=== PATIENT | female | born 1975 | race Caucasian/White ===

== ENCOUNTER 2017-02-24 06:58 | Emergency (ER) | payer MEDICAID ==
[~2017-02-24] VITALS: Ht 162.6 cm; Wt 73.9 kg
--- NOTE | 2017-02-24 07:05 | NUR ---
Called for triage, can hear pt vomiting in restroom. Will bring back matthew.
[2017-02-24 07:18] VITALS: BP_SYST 152
--- NOTE | 2017-02-24 07:18 | NUR ---
Pt to bed 5, placed in gown for evaluation
--- NOTE | 2017-02-24 07:19 | NUR ---
Patient alert and oriented x4, stable condition, has had mid abdominal pain for three years but vomited 5x this am. States drank "a few beers" last night. Denies drinking alcohol daily. Denies diarrhea. States is nauseated now. Abdomen soft and non distended. No other complaints/injuries per patient or noted.
--- NOTE | 2017-02-24 07:20 | NUR ---
Dr. Dash at bedside for evaluation
[2017-02-24] MEDS ORDERED: NACL 0.9% 1,000 ML IV ONE (07:22)
[2017-02-24] MEDS ORDERED: ONDANSETRON HCL 4 MG/2 ML VIAL IVP ONE (07:30)
[2017-02-24] MEDS ORDERED: DIPHENHYDRAMINE INJ 50 MG/ML VIAL IVP ONE (07:30)
[2017-02-24] MEDS ORDERED: MORPHINE 2 MG/ML INJ. SYRINGE IVP ONE (07:30)
[2017-02-24] MEDS ORDERED: PANTOPRAZOLE SODIUM 40 MG/VIAL (PROTONIX) IVP ONE (07:30)
[2017-02-24 07:41] LABS: BASOPHILS # (AUTO) 0.2 K/uL (0.0-0.2); BASOPHILS % (AUTO) 2.3 % (0.0-2.0); EOSINOPHILS # (AUTO) 0.1 K/uL (0.0-0.4); EOSINOPHILS % (AUTO) 0.9 % (0.0-4.0); HEMATOCRIT 40.8 % (36-48); HEMOGLOBIN 13.8 g/dL (12.0-16.0); LYMPHOCYTES # (AUTO) 1.7 K/uL (1.0-5.5); LYMPHOCYTES % (AUTO) 22.1 % (20.5-51.5); MEAN CORPUSCULAR HEMOGLOBIN 30 pg (27-31); MEAN CORPUSCULAR HGB CONC 34 % (32-36); MEAN CORPUSCULAR VOLUME 87 fL (79.0-98.0); MONOCYTES # (AUTO) 0.4 K/uL (0.0-1.0); MONOCYTES % (AUTO) 5.4 % (1.7-9.3); NEUTROPHILS # (AUTO) 5.1 K/uL (1.8-7.7); NEUTROPHILS % (AUTO) 69.3 % (40.0-70.0); PLATELET COUNT (AUTO) 279 K/uL (130-430); RED BLOOD CELL COUNT(AUTO) 4.67 MIL/uL (4.2-6.2); RED CELL DISTRIBUTION WIDTH 12.5 % (9.0-15.0); WHITE BLOOD COUNT (AUTO) 7.5 K/uL (4.8-10.8)
[2017-02-24 07:52] LABS: CALCIUM 8.8 mg/dL (8.4-11.0); CREATININE 0.76 mg/dL (0.55-1.30); POTASSIUM 3.2 mmol/L (3.5-5.1)
[2017-02-24 07:57] LABS: TOTAL BILIRUBIN 1.4 mg/dL (0.0-1.0); TOTAL PROTEIN, SERUM 7.2 g/dL (6.4-8.3)
[2017-02-24 08:25] LABS: BILIRUBIN,URINE NEGATIVE (NEGATIVE); BLOOD, URINE 2+ (NEGATIVE); CLARITY/URINE CLEAR (CLEAR); COLOR,URINE YELLOW (YELLOW); GLUCOSE,URINE NEGATIVE (NEGATIVE); KETONES,URINE 2+ (NEGATIVE); LEUKOCYTE ESTERASE ,URINE NEGATIVE (NEGATIVE); NITRITE, URINE NEGATIVE (NEGATIVE); PH,URINE 6.5 (5.0-8.0); PROTEIN URINE TRACE (NEGATIVE)
[2017-02-24 08:41] LABS: BACTERIA,URINE RARE /HPF (None Seen); MUCUS,URINE 1+ /LPF (None Seen); WBC,URINE 0-3 /HPF (0-3)
[2017-02-24] MEDS ORDERED: MAG HYDROX/AL HYDROX/SIMETH 30 ML, BELLADONNA ALKALOIDS/PHENOBARB 10 ML, LIDOCAINE VISC... PO ONE ×3 (08:45)
--- NOTE | 2017-02-24 09:17 | NUR ---
Patient sleeping in bed, stable condition.
--- NOTE | 2017-02-24 11:00 | NUR ---
Patient sleeping in bed, arousable to voice. Stable condition.
--- NOTE | 2017-02-24 11:05 | NUR ---
PT.'S RELATIVE BELKIS WAS REACHED AT [phone], BELKIS AGREED TO DOG LICENSER THE PT. ETA 1115, PT. TO BE DISCHARGED WITH BELKIS HER DESIGNATED INSURANCE ACCOUNT MANAGER
[2017-02-24 11:15] VITALS: BP_SYST 154
--- NOTE | 2017-02-24 11:15 | NUR ---
Patient given written and verbal discharge instructions and verbalizes understanding. ER MD DR. DOBBS discussed with patient the results and treatment provided. Patient in stable condition. ID arm band removed. IV catheter removed intact and dressing applied, no active bleeding. NO Rx given. Patient educated on pain management and to follow up with PMD. Pain Scale 0/10 Opportunity for questions provided and answered.
== END 2017-02-24 11:15 | disposition home or self-care (01) ==
LOC: SED 06:58
DX: K29.20 Alcoholic gastritis without bleeding (principal)
CPT/HCPCS: 36415; 80053; 81000; 81025; 83690; 85025; 96361; 96374; 96375; 99284; C9113; J1200; J2001; J2270; J2405; J7030; 99283

== ENCOUNTER 2017-11-01 10:56 | Emergency (ER) | payer MEDICAID ==
[~2017-11-01] VITALS: Ht 162.6 cm; Wt 73.9 kg
[2017-11-01 11:13] VITALS: BP_SYST 136
--- NOTE | 2017-11-01 11:17 | NUR ---
Patient triaged and placed in waiting room. VSS and patient appears in no acute distress at this time. Accompanied by self, was dropped off by a friend, awaiting available bed, and MD notified of need for MSE.
[2017-11-01 12:36] LABS: BASOPHILS % (AUTO) 0.6 % (0.0-2.0); EOSINOPHILS # (AUTO) 0.1 K/uL (0.0-0.4); EOSINOPHILS % (AUTO) 1.1 % (0.0-4.0); HEMATOCRIT 43.9 % (36-48); HEMOGLOBIN 14.4 g/dL (12.0-16.0); LYMPHOCYTES # (AUTO) 1.4 K/uL (1.0-5.5); LYMPHOCYTES % (AUTO) 23.5 % (20.5-51.5); MEAN CORPUSCULAR HEMOGLOBIN 29 pg (27-31); MEAN CORPUSCULAR HGB CONC 33 % (32-36); MEAN CORPUSCULAR VOLUME 88 fL (79.0-98.0); MONOCYTES # (AUTO) 0.3 K/uL (0.0-1.0); MONOCYTES % (AUTO) 5.4 % (1.7-9.3); NEUTROPHILS # (AUTO) 4.4 K/uL (1.8-7.7); NEUTROPHILS % (AUTO) 69.4 % (40.0-70.0); PLATELET COUNT (AUTO) 313 K/uL (130-430); RED BLOOD CELL COUNT(AUTO) 4.98 MIL/uL (4.2-6.2); RED CELL DISTRIBUTION WIDTH 12.8 % (9.0-15.0); WHITE BLOOD COUNT (AUTO) 6.2 K/uL (4.8-10.8)
[2017-11-01 12:55] LABS: ANION GAP 9 (5-15); CALCIUM 8.9 mg/dL (8.4-11.0); CHLORIDE 102 mmol/L (98-107); CREATININE 0.67 mg/dL (0.55-1.30); GLUCOSE 97 mg/dL (70-99); POTASSIUM 3.8 mmol/L (3.5-5.1); SODIUM SERUM 139 mmol/L (136-145); UREA NITROGEN, BLOOD 10 mg/dL (8-21)
[2017-11-01 12:59] LABS: ALANINE AMINOTRANSFERASE 25 U/L (12-78); ALBUMIN 3.7 g/dL (3.4-4.8); ASPARTATE AMINOTRANSFERASE 14 U/L (10-37); LIPASE 143 U/L (73-393); TOTAL BILIRUBIN 1.6 mg/dL (0.0-1.0)
[2017-11-01 13:05] LABS: ALCOHOL, BLOOD < 3 mg/dL (<10); GFR AFRICAN AMERICAN 123 mL/min (>90)
[2017-11-01 13:18] LABS: ACETAMINOPHEN < 1 ug/mL (1-30)
[2017-11-01 14:21] LABS: BILIRUBIN,URINE NEGATIVE (NEGATIVE); BLOOD, URINE 2+ (NEGATIVE); CLARITY/URINE CLEAR (CLEAR); COLOR,URINE YELLOW (YELLOW); GLUCOSE,URINE NEGATIVE (NEGATIVE); KETONES,URINE 3+ (NEGATIVE); LEUKOCYTE ESTERASE ,URINE NEGATIVE (NEGATIVE); NITRITE, URINE POSITIVE (NEGATIVE); PROTEIN URINE NEGATIVE (NEGATIVE)
[2017-11-01 14:34] LABS: BACTERIA,URINE FEW /HPF (None Seen); MUCUS,URINE 1+ /LPF (None Seen); WBC,URINE 0-3 /HPF (0-3)
[2017-11-01 14:36] LABS: BARBITURATE, URINE NEGATIVE (NEG <=200); BENZODIAZEPINE, URINE NEGATIVE (NEG <=150); CANNABINOID, URINE NEGATIVE (NEG <=50); COCAINE, URINE NEGATIVE (NEG <=150); METHAMPHETAMINES SCREEN,URINE NEGATIVE (NEG <=500); OPIATE, URINE NEGATIVE (NEG <=100); PHENCYCLIDINE SCREEN,URINE NEGATIVE (NEG <=25); UR TRICYCLIC ANTIDEPRESSANTS NEGATIVE (NEG <=300); URINE AMPHETAMINE POSITIVE (NEG <=500); URINE METHADONE NEGATIVE (NEG <=200); URINE OXYCODONE SCREEN NEGATIVE (NEG <=100); URINE PROPOXYPHENE SCREEN NEGATIVE (NEG <=300)
--- NOTE | 2017-11-01 14:55 | NUR ---
Patient placed in room 4, endorsed care to jh DE LA ROSA.
--- NOTE | 2017-11-01 15:20 | NUR ---
Patient to ER via triage with c/o upper abdominal pain, with nausea & vomiting x "a few months" Patient reports that she has kidney stones and has run out of her medication(Ibuprofen and another unknown medication) Patient reports that she had a doctors appointment yesterday and today, but that she missed them, due to not feeling well. Patient provided urine sample while patient was in triage, urine specimen was sent to lab. Patient laying on left side with knees flexed in position of comfort, awaiting evaluation by ER MD-will continue to observe and assess.
--- NOTE | 2017-11-01 15:30 | NUR ---
ER Dr. GARZA at bedside examining patient.
[2017-11-01] MEDS ORDERED: KETOROLAC TROMETHAMINE 30 MG VIAL IM ONE (15:45)
[2017-11-01] MEDS ORDERED: ONDANSETRON 4 MG ODT TAB PO ONE (15:45)
--- NOTE | 2017-11-01 15:53 | NUR ---
PT C/O SHARP 9/10 PAIN TO ABDOMEN. PT LAYING ON L SIDE IN POSITION GUARDING ABDOMEN. TORADOL IM ADMINISTERED. PT JERROD WELL. WILL CONTINUE TO MONITOR.
--- NOTE | 2017-11-01 16:49 | NUR ---
US at bedside
--- NOTE | 2017-11-01 17:50 | NUR ---
PT LAYING COMFORTABLY IN BED ON L SIDE WITH NO SIGNS OF DISTRESS.
--- NOTE | 2017-11-01 18:06 | NUR ---
PT GIVEN JELLO PER PT REQUEST. PT LAYING COMFORTABLY IN BED WITH LIGHTS OFF AND NO SIGNS OF DISTRESS.
[2017-11-01 18:40] VITALS: BP_SYST 109
--- NOTE | 2017-11-01 18:40 | NUR ---
Patient given written and verbal discharge instructions and verbalizes understanding. ER MD discussed with patient the results and treatment provided. Patient in stable condition. ID arm band removed. Rx of motrin, norco given. Patient educated on pain management and to follow up with PMD. Has appt with PMD on monday. Pain Scale 2/10. Opportunity for questions provided and answered.
== END 2017-11-01 18:40 | disposition home or self-care (01) ==
LOC: SED 10:56
DX: N23 Unspecified renal colic (principal); Z87.442 Personal history of urinary calculi; F17.210 Nicotine dependence, cigarettes, uncomplicated
CPT/HCPCS: 36415; 76700; 80053; 80307; 81000; 81025; 83690; 85025; 96372; 99285; G0480; G0481; G0482; J1885; Q0162

== ENCOUNTER 2017-11-03 07:43 | Emergency (ER) | payer MEDICAID ==
[~2017-11-03] VITALS: Ht 165.1 cm; Wt 73.9 kg
[2017-11-03 07:50] VITALS: BP_SYST 152
[2017-11-03] MEDS ORDERED: PIPERACILLIN/TAZO 3.38 GM in NS 50 ML IV ONE (08:30)
[2017-11-03] MEDS ORDERED: MORPHINE 4 MG/ML INJ. SYRINGE IVP ONE (08:30)
[2017-11-03] MEDS ORDERED: DIPHENHYDRAMINE INJ 50 MG/ML VIAL IVP ONE (08:30)
[2017-11-03] MEDS ORDERED: PIPERACILLIN/TAZOBACTAM 3.375 GM/VIAL (ZOSYN) IV ONE (08:33)
[2017-11-03 08:49] LABS: CALCIUM 8.8 mg/dL (8.4-11.0); CREATININE 0.65 mg/dL (0.55-1.30); POTASSIUM 3.5 mmol/L (3.5-5.1)
[2017-11-03 08:51] LABS: PROTHROMBIN TIME 9.9 SECS (9.5-12.5)
[2017-11-03 08:53] LABS: ALBUMIN 3.6 g/dL (3.4-4.8); TOTAL BILIRUBIN 1.2 mg/dL (0.0-1.0)
[2017-11-03 08:59] LABS: BASOPHILS % (AUTO) 0.4 % (0.0-2.0); EOSINOPHILS # (AUTO) 0.1 K/uL (0.0-0.4); EOSINOPHILS % (AUTO) 1.9 % (0.0-4.0); HEMOGLOBIN 14.8 g/dL (12.0-16.0); LYMPHOCYTES # (AUTO) 2.1 K/uL (1.0-5.5); LYMPHOCYTES % (AUTO) 31.6 % (20.5-51.5); MEAN CORPUSCULAR HEMOGLOBIN 29 pg (27-31); MEAN CORPUSCULAR HGB CONC 33 % (32-36); MEAN CORPUSCULAR VOLUME 89 fL (79.0-98.0); MONOCYTES # (AUTO) 0.5 K/uL (0.0-1.0); MONOCYTES % (AUTO) 6.8 % (1.7-9.3); NEUTROPHILS % (AUTO) 59.3 % (40.0-70.0); PLATELET COUNT (AUTO) 320 K/uL (130-430); RED BLOOD CELL COUNT(AUTO) 5.05 MIL/uL (4.2-6.2); RED CELL DISTRIBUTION WIDTH 13.1 % (9.0-15.0); WHITE BLOOD COUNT (AUTO) 6.7 K/uL (4.8-10.8)
[2017-11-03 09:45] LABS: BILIRUBIN,URINE NEGATIVE (NEGATIVE); BLOOD, URINE 1+ (NEGATIVE); CLARITY/URINE CLEAR (CLEAR); GLUCOSE,URINE NEGATIVE (NEGATIVE); KETONES,URINE 2+ (NEGATIVE); LEUKOCYTE ESTERASE ,URINE NEGATIVE (NEGATIVE); NITRITE, URINE NEGATIVE (NEGATIVE); PH,URINE 5.5 (5.0-8.0); PROTEIN URINE NEGATIVE (NEGATIVE)
[2017-11-03 09:47] LABS: COLOR,URINE YELLOW (YELLOW)
[2017-11-03 09:54] LABS: BACTERIA,URINE RARE /HPF (None Seen); MUCUS,URINE 1+ /LPF (None Seen); RBC,URINE 0-3 /HPF (0-3); WBC,URINE 0-3 /HPF (0-3)
[2017-11-03 10:14] LABS: BARBITURATE, URINE NEGATIVE (NEG <=200); BENZODIAZEPINE, URINE NEGATIVE (NEG <=150); CANNABINOID, URINE NEGATIVE (NEG <=50); COCAINE, URINE NEGATIVE (NEG <=150); METHAMPHETAMINES SCREEN,URINE NEGATIVE (NEG <=500); OPIATE, URINE NEGATIVE (NEG <=100); PHENCYCLIDINE SCREEN,URINE NEGATIVE (NEG <=25); URINE METHADONE NEGATIVE (NEG <=200)
[2017-11-03 10:15] LABS: UR TRICYCLIC ANTIDEPRESSANTS NEGATIVE (NEG <=300); URINE AMPHETAMINE POSITIVE (NEG <=500); URINE OXYCODONE SCREEN NEGATIVE (NEG <=100); URINE PROPOXYPHENE SCREEN NEGATIVE (NEG <=300)
[2017-11-03] MEDS ORDERED: MAGNESIUM CITRATE 300 ML ORAL SOLUTION PO ONE (11:00)
[2017-11-03 11:12] VITALS: BP_SYST 138
== END 2017-11-03 11:12 | disposition home or self-care (01) ==
LOC: SED 07:53
DX: K59.00 Constipation, unspecified (principal); F15.10 Other stimulant abuse, uncomplicated; Z87.442 Personal history of urinary calculi
CPT/HCPCS: 36415; 51701; 74176; 80053; 80307; 81000; 83605; 83690; 85025; 85610; 87040; 93005; 96365; 96375; 99285; G0482; J1200; J2270; J2543

== ENCOUNTER 2017-12-01 04:07 | Emergency (ER) | payer MEDICAID ==
[~2017-12-01] VITALS: Ht 162.6 cm; Wt 72.6 kg
[2017-12-01 04:14] VITALS: BP_SYST 128
--- NOTE | 2017-12-01 04:18 | NUR ---
Patient to ER bed 07 to gown for evaluation. Side rails up. Report given to ESTRELLA Dotson.
--- NOTE | 2017-12-01 04:22 | NUR ---
Pt complain of a bump on the left elbow for the last two days. Pt stated that she squeezed to clean it. No active bleeding noted. redness on the radha area of the wound. Will continue to monitor
--- NOTE | 2017-12-01 04:25 | NUR ---
ER at bedside examining patient.
[2017-12-01 05:18] VITALS: BP_SYST 128
--- NOTE | 2017-12-01 05:18 | NUR ---
Patient given written and verbal discharge instructions and verbalizes understanding. ER MD discussed with patient the results and treatment provided. Patient in stable condition. Cleansed wound with NS. pat dry. placed non adhasive dressing and secured with kerlix dressing. Rx of clindamycin given. Patient educated on pain management and to follow up with PMD. Pain Scale 2/10. Tolerable pain level per pt. Opportunity for questions provided and answered.
== END 2017-12-01 05:18 | disposition home or self-care (01) ==
LOC: SED 04:07
DX: T63.391A Toxic effect of venom of other spider, accidental (unintentional), initial encounter (principal); L03.114 Cellulitis of left upper limb; Y92.89 Other specified places as the place of occurrence of the external cause
CPT/HCPCS: 99283

== ENCOUNTER 2018-01-15 12:03 | Emergency (ER) | payer MEDICAID ==
[~2018-01-15] VITALS: Ht 162.6 cm; Wt 69.4 kg
[2018-01-15 12:19] VITALS: BP_SYST 155
[2018-01-15 14:38] LABS: BILIRUBIN,URINE 1+ (NEGATIVE); BLOOD, URINE 3+ (NEGATIVE); CLARITY/URINE SL HAZY (CLEAR); COLOR,URINE YELLOW (YELLOW); GLUCOSE,URINE NEGATIVE (NEGATIVE); KETONES,URINE 3+ (NEGATIVE); LEUKOCYTE ESTERASE ,URINE NEGATIVE (NEGATIVE); NITRITE, URINE NEGATIVE (NEGATIVE); PROTEIN URINE TRACE (NEGATIVE); UROBILINOGEN,URINE 0.2 (0.2-1.0)
[2018-01-15 14:54] LABS: BACTERIA,URINE RARE /HPF (None Seen); MUCUS,URINE 3+ /LPF (None Seen); RBC,URINE 20-50 /HPF (0-3)
[2018-01-15] MEDS ORDERED: KETOROLAC TROMETHAMINE 60 MG/2 ML VIAL IM ONE (15:30)
[2018-01-15 15:46] VITALS: BP_SYST 165
== END 2018-01-15 16:10 | disposition home or self-care (01) ==
LOC: SED 12:03
DX: R10.13 Epigastric pain (principal); R11.10 Vomiting, unspecified; Z87.442 Personal history of urinary calculi
CPT/HCPCS: 81000; 96372; 99283; J1885

== ENCOUNTER 2018-05-04 01:54 | Emergency (ER) | payer SELFPAY ==
[~2018-05-04] VITALS: Ht 165.1 cm; Wt 69.4 kg
[~2018-05-04 01:54] MED LIST: PRO40 PO
[2018-05-04 02:20] VITALS: BP_SYST 118
[2018-05-04] MEDS ORDERED: ONDA4TAB5 PO (02:25)
[2018-05-04] MEDS ORDERED: IBUP-1480 PO (02:26)
[2018-05-04 03:18] LABS: BASOPHILS # (AUTO) 0.1 K/uL (0.0-0.2); BASOPHILS % (AUTO) 0.8 % (0.0-2.0); EOSINOPHILS % (AUTO) 0.4 % (0.0-4.0); HEMATOCRIT 37.8 % (36-48); HEMOGLOBIN 12.1 g/dL (12.0-16.0); LYMPHOCYTES # (AUTO) 2.2 K/uL (1.0-5.5); LYMPHOCYTES % (AUTO) 24.6 % (20.5-51.5); MEAN CORPUSCULAR HEMOGLOBIN 22 pg (27-31); MEAN CORPUSCULAR HGB CONC 32 % (32-36); MEAN CORPUSCULAR VOLUME 69 fL (79.0-98.0); MONOCYTES # (AUTO) 0.4 K/uL (0.0-1.0); MONOCYTES % (AUTO) 5.1 % (1.7-9.3); NEUTROPHILS # (AUTO) 6.1 K/uL (1.8-7.7); NEUTROPHILS % (AUTO) 69.1 % (40.0-70.0); PLATELET COUNT (AUTO) 478 K/uL (130-430); RED BLOOD CELL COUNT(AUTO) 5.49 MIL/uL (4.2-6.2); RED CELL DISTRIBUTION WIDTH 18.7 % (9.0-15.0); WHITE BLOOD COUNT (AUTO) 8.8 K/uL (4.8-10.8)
[2018-05-04 03:28] LABS: CALCIUM 8.4 mg/dL (8.4-11.0); CREATININE 0.96 mg/dL (0.55-1.30); POTASSIUM 3.1 mmol/L (3.5-5.1)
[2018-05-04] MEDS ORDERED: NACL 0.9% 1,000 ML IV ONE (03:30)
[2018-05-04 03:45] LABS: ALBUMIN 3.6 g/dL (3.4-4.8); TOTAL BILIRUBIN 1.6 mg/dL (0.0-1.0)
[2018-05-04] MEDS ORDERED: POTASSIUM CHLORIDE 20 MEQ/PKT PACKET PO ONE (03:45)
[2018-05-04 04:26] LABS: BILIRUBIN,URINE 1+ (NEGATIVE); BLOOD, URINE 2+ (NEGATIVE); CLARITY/URINE CLEAR (CLEAR); COLOR,URINE YELLOW (YELLOW); GLUCOSE,URINE NEGATIVE (NEGATIVE); KETONES,URINE 2+ (NEGATIVE); LEUKOCYTE ESTERASE ,URINE NEGATIVE (NEGATIVE); NITRITE, URINE NEGATIVE (NEGATIVE); PROTEIN URINE TRACE (NEGATIVE); UROBILINOGEN,URINE 0.2 (0.2-1.0)
[2018-05-04 04:43] LABS: BARBITURATE, URINE NEGATIVE (NEG <=200); BENZODIAZEPINE, URINE NEGATIVE (NEG <=150); CANNABINOID, URINE NEGATIVE (NEG <=50); COCAINE, URINE NEGATIVE (NEG <=150); METHAMPHETAMINES SCREEN,URINE NEGATIVE (NEG <=500); OPIATE, URINE NEGATIVE (NEG <=100); PHENCYCLIDINE SCREEN,URINE NEGATIVE (NEG <=25); UR TRICYCLIC ANTIDEPRESSANTS NEGATIVE (NEG <=300); URINE AMPHETAMINE POSITIVE (NEG <=500); URINE METHADONE NEGATIVE (NEG <=200); URINE OXYCODONE SCREEN NEGATIVE (NEG <=100); URINE PROPOXYPHENE SCREEN NEGATIVE (NEG <=300)
[2018-05-04] MEDS ORDERED: cefTRIAXone 1 GM in D5W 50 ML IV ONE (05:00)
[2018-05-04] MEDS ORDERED: cefTRIAXone 1 GM VIAL ONE (05:04)
[2018-05-04 05:06] LABS: BACTERIA,URINE FEW /HPF (None Seen); MUCUS,URINE 1+ /LPF (None Seen); WBC,URINE 0-3 /HPF (0-3)
[2018-05-04 05:07] LABS: HYALINE CASTS, URINE 0-10 /LPF (None Seen)
[2018-05-04] MEDS ORDERED: LACTULOSE 20 GM/30 ML UDC PO ONE (06:00)
[2018-05-04 06:34] VITALS: BP_SYST 121
== END 2018-05-04 06:34 | disposition home or self-care (01) ==
LOC: SED 01:54
DX: N20.0 Calculus of kidney (principal); N39.0 Urinary tract infection, site not specified; K59.00 Constipation, unspecified; E87.6 Hypokalemia; F15.90 Other stimulant use, unspecified, uncomplicated; F17.200 Nicotine dependence, unspecified, uncomplicated; Z79.899 Other long term (current) drug therapy
CPT/HCPCS: 36415; 74176; 80053; 80307; 81000; 81025; 83690; 84702; 85025; 96361; 96365; 99285; J0696; J7030

== ENCOUNTER 2018-05-08 04:00 | Inpatient (IN) | payer OTHER ==
[~2018-05-08] VITALS: Ht 162.6 cm; Wt 64.0 kg
[~2018-05-08 04:00] MED LIST changes: +IBUP-1480 PO; +ONDA4TAB5 PO
[2018-05-08] MEDS ORDERED: MAGNESIUM CITRATE 300 ML ORAL SOLUTION ONE (04:34)
[2018-05-08] MEDS ORDERED: TAMSULOSIN HCL 0.4 MG CAP ONE (06:01)
[2018-05-08] MEDS ORDERED: MORPHINE 4 MG/ML INJ. SYRINGE ONE (06:13)
[2018-05-08] MEDS ORDERED: NACL 0.9% 1,000 ML IV ONE (07:00)
[2018-05-08] MEDS ORDERED: KETOROLAC TROMETHAMINE 15 MG VIAL IVP ONE (07:00)
[2018-05-08] MEDS ORDERED: ONDANSETRON HCL 4 MG/2 ML VIAL IVP PRN (07:15)
[2018-05-08 07:22] LABS: HEMATOCRIT 31.7 % (36-48); HEMOGLOBIN 10.1 g/dL (12.0-16.0); MEAN CORPUSCULAR HEMOGLOBIN 22 pg (27-31); MEAN CORPUSCULAR HGB CONC 32 % (32-36); MEAN CORPUSCULAR VOLUME 70 fL (79.0-98.0); PLATELET COUNT (AUTO) 357 K/uL (130-430); RED BLOOD CELL COUNT(AUTO) 4.53 MIL/uL (4.2-6.2); RED CELL DISTRIBUTION WIDTH 20.6 % (9.0-15.0); WHITE BLOOD COUNT (AUTO) 6.9 K/uL (4.8-10.8)
[2018-05-08 07:23] LABS: CALCIUM 8.2 mg/dL (8.4-11.0); CREATININE 0.54 mg/dL (0.55-1.30); POTASSIUM 3.5 mmol/L (3.5-5.1); TOTAL BILIRUBIN 0.8 mg/dL (0.0-1.0)
[2018-05-08 07:25] LABS: BASOPHILS % (MANUAL) 0 % (0-2); EOSINOPHILS % (MANUAL) 2 % (0-7); LYMPHOCYTES % (MANUAL) 33 % (20-46); MONOCYTES % (MANUAL) 7 % (0-11)
[2018-05-08 07:31] LABS: BILIRUBIN,URINE NEGATIVE (NEGATIVE); BLOOD, URINE TRACE (NEGATIVE); CLARITY/URINE SL HAZY (CLEAR); COLOR,URINE YELLOW (YELLOW); GLUCOSE,URINE NEGATIVE (NEGATIVE); KETONES,URINE NEGATIVE (NEGATIVE); LEUKOCYTE ESTERASE ,URINE NEGATIVE (NEGATIVE); NITRITE, URINE NEGATIVE (NEGATIVE); PH,URINE 7.5 (5.0-8.0); PROTEIN URINE NEGATIVE (NEGATIVE)
[2018-05-08 07:32] LABS: BACTERIA,URINE FEW /HPF (None Seen); WBC,URINE 0-3 /HPF (0-3)
[2018-05-08 07:33] LABS: BARBITURATE, URINE NEGATIVE (NEG <=200); BENZODIAZEPINE, URINE NEGATIVE (NEG <=150); COCAINE, URINE NEGATIVE (NEG <=150); METHAMPHETAMINES SCREEN,URINE NEGATIVE (NEG <=500); MUCUS,URINE 1+ /LPF (None Seen); URINE AMORPHOUS PHOSPHATES 1+ /HPF (None Seen); URINE AMPHETAMINE NEGATIVE (NEG <=500); URINE METHADONE NEGATIVE (NEG <=200)
[2018-05-08 07:34] VITALS: BP_SYST 120
[2018-05-08 07:34] LABS: CANNABINOID, URINE NEGATIVE (NEG <=50); OPIATE, URINE NEGATIVE (NEG <=100); PHENCYCLIDINE SCREEN,URINE NEGATIVE (NEG <=25); UR TRICYCLIC ANTIDEPRESSANTS NEGATIVE (NEG <=300); URINE OXYCODONE SCREEN NEGATIVE (NEG <=100); URINE PROPOXYPHENE SCREEN NEGATIVE (NEG <=300)
[2018-05-08] MEDS: HYDROmorphone 1 MG INJ. 1 MG/ML AMPUL IVP PRN ×2 (09:40→19:42)
[2018-05-08] MEDS ORDERED: GASTROGRAFIN 120 ML ONE (09:48)
[2018-05-08] MEDS ORDERED: IBUPROFEN 800 MG TABLET PO PRN (12:30)
[2018-05-08 13:13] VITALS: BP_SYST 106
[2018-05-08] MEDS ORDERED: GOLYTELY / COLYTE SOLUTION 4 LITERS PO ONE (13:15)
[2018-05-08] MEDS ORDERED: PANTOPRAZOLE SODIUM 40 MG/VIAL (PROTONIX) IVP ONE (13:30)
[2018-05-08 16:36] VITALS: BP_SYST 121
[2018-05-08] MEDS: MORPHINE 2 MG/ML INJ. SYRINGE IVP PRN ×2 (16:56→22:07)
[2018-05-08] MEDS: PANTOPRAZOLE SODIUM 40 MG/VIAL (PROTONIX) IVP SCH (20:02)
[2018-05-08 20:13] VITALS: BP_SYST 116
[2018-05-09 01:08] VITALS: BP_SYST 115
[2018-05-09] MEDS: MORPHINE 4 MG/ML INJ. SYRINGE IVP PRN ×2 (01:08→14:53)
[2018-05-09 06:21] LABS: BASOPHILS # (AUTO) 0.1 K/uL (0.0-0.2); BASOPHILS % (AUTO) 0.9 % (0.0-2.0); EOSINOPHILS # (AUTO) 0.2 K/uL (0.0-0.4); EOSINOPHILS % (AUTO) 2.7 % (0.0-4.0); HEMATOCRIT 28.3 % (36-48); HEMOGLOBIN 8.9 g/dL (12.0-16.0); LYMPHOCYTES # (AUTO) 2.5 K/uL (1.0-5.5); MEAN CORPUSCULAR HEMOGLOBIN 22 pg (27-31); MEAN CORPUSCULAR HGB CONC 31 % (32-36); MEAN CORPUSCULAR VOLUME 70 fL (79.0-98.0); MONOCYTES # (AUTO) 0.3 K/uL (0.0-1.0); MONOCYTES % (AUTO) 4.8 % (1.7-9.3); NEUTROPHILS # (AUTO) 2.7 K/uL (1.8-7.7); NEUTROPHILS % (AUTO) 48.6 % (40.0-70.0); PLATELET COUNT (AUTO) 324 K/uL (130-430); RED BLOOD CELL COUNT(AUTO) 4.04 MIL/uL (4.2-6.2); WHITE BLOOD COUNT (AUTO) 5.8 K/uL (4.8-10.8)
[2018-05-09 07:16] LABS: ALBUMIN 2.4 g/dL (3.4-4.8); CALCIUM 7.9 mg/dL (8.4-11.0); CREATININE 0.68 mg/dL (0.55-1.30); THYROID STIMULATING HORMONE 3.4 uIu/mL (0.34-4.82); TOTAL BILIRUBIN 0.8 mg/dL (0.0-1.0)
[2018-05-09 07:22] LABS: POTASSIUM 2.9 mmol/L (3.5-5.1)
[2018-05-09 08:06] VITALS: BP_SYST 110
[2018-05-09] MEDS: PANTOPRAZOLE SODIUM 40 MG/VIAL (PROTONIX) IVP SCH ×2 (09:30→21:32)
[2018-05-09] MEDS: MORPHINE 2 MG/ML INJ. SYRINGE IVP PRN (09:31)
[2018-05-09] MEDS ORDERED: POTASSIUM CHLORIDE 20 MEQ TAB.PRT.SR PO ONE (09:45)
[2018-05-09] MEDS ORDERED: LUBIPROSTONE 24 MCG CAPSULE PO ONE (10:45)
[2018-05-09 12:47] VITALS: BP_SYST 101
[2018-05-09 14:10] LABS: TOTAL IRON BIND. CAPACITY 351 ug/dL (250-450)
[2018-05-09] MEDS: ACETAMINOPHEN 325 MG TABLET PO PRN (14:49)
[2018-05-09 16:25] LABS: BASOPHILS % (AUTO) 0.4 % (0.0-2.0); EOSINOPHILS # (AUTO) 0.1 K/uL (0.0-0.4); EOSINOPHILS % (AUTO) 1.3 % (0.0-4.0); HEMOGLOBIN 8.8 g/dL (12.0-16.0); LYMPHOCYTES # (AUTO) 2.1 K/uL (1.0-5.5); LYMPHOCYTES % (AUTO) 29.4 % (20.5-51.5); MEAN CORPUSCULAR HEMOGLOBIN 22 pg (27-31); MEAN CORPUSCULAR HGB CONC 31 % (32-36); MEAN CORPUSCULAR VOLUME 70 fL (79.0-98.0); MONOCYTES # (AUTO) 0.4 K/uL (0.0-1.0); MONOCYTES % (AUTO) 5.4 % (1.7-9.3); NEUTROPHILS # (AUTO) 4.7 K/uL (1.8-7.7); NEUTROPHILS % (AUTO) 63.5 % (40.0-70.0); PLATELET COUNT (AUTO) 295 K/uL (130-430); RED BLOOD CELL COUNT(AUTO) 4.03 MIL/uL (4.2-6.2); RED CELL DISTRIBUTION WIDTH 19.6 % (9.0-15.0); WHITE BLOOD COUNT (AUTO) 7.3 K/uL (4.8-10.8)
[2018-05-09 16:37] LABS: CALCIUM 7.9 mg/dL (8.4-11.0); CREATININE 0.58 mg/dL (0.55-1.30)
[2018-05-09 16:45] VITALS: BP_SYST 101
[2018-05-09 17:06] LABS: RETICULOCYTE COUNT 1.9 % (0.5-1.5)
[2018-05-09] MEDS: SOD FERRIC GLUC COMPLEX/SUC 125 MG in NS 100 ML IV SCH (18:18)
[2018-05-09 20:25] VITALS: BP_SYST 107
[2018-05-09] MEDS: LUBIPROSTONE 24 MCG CAPSULE PO SCH (21:31)
[2018-05-09] MEDS: POTASSIUM CHLORIDE 20 MEQ TAB.PRT.SR PO SCH (21:31)
[2018-05-09 23:40] VITALS: BP_SYST 110
[2018-05-10] MEDS: MORPHINE 2 MG/ML INJ. SYRINGE IVP PRN ×3 (02:23→18:20)
[2018-05-10] MEDS: ACETAMINOPHEN 325 MG TABLET PO PRN (05:40)
[2018-05-10 06:07] LABS: BASOPHILS % (AUTO) 0.4 % (0.0-2.0); EOSINOPHILS # (AUTO) 0.1 K/uL (0.0-0.4); EOSINOPHILS % (AUTO) 1.7 % (0.0-4.0); HEMATOCRIT 26.6 % (36-48); HEMOGLOBIN 8.3 g/dL (12.0-16.0); LYMPHOCYTES # (AUTO) 2.4 K/uL (1.0-5.5); LYMPHOCYTES % (AUTO) 36.2 % (20.5-51.5); MEAN CORPUSCULAR HEMOGLOBIN 22 pg (27-31); MEAN CORPUSCULAR HGB CONC 31 % (32-36); MEAN CORPUSCULAR VOLUME 69 fL (79.0-98.0); MONOCYTES # (AUTO) 0.4 K/uL (0.0-1.0); MONOCYTES % (AUTO) 5.4 % (1.7-9.3); NEUTROPHILS # (AUTO) 3.8 K/uL (1.8-7.7); NEUTROPHILS % (AUTO) 56.3 % (40.0-70.0); PLATELET COUNT (AUTO) 247 K/uL (130-430); RED BLOOD CELL COUNT(AUTO) 3.84 MIL/uL (4.2-6.2); RED CELL DISTRIBUTION WIDTH 19.6 % (9.0-15.0); WHITE BLOOD COUNT (AUTO) 6.7 K/uL (4.8-10.8)
[2018-05-10 07:04] LABS: ALBUMIN 2.2 g/dL (3.4-4.8); CALCIUM 7.9 mg/dL (8.4-11.0); CREATININE 0.54 mg/dL (0.55-1.30); TOTAL BILIRUBIN 0.5 mg/dL (0.0-1.0)
[2018-05-10 08:08] VITALS: BP_SYST 106
[2018-05-10] MEDS: PANTOPRAZOLE SODIUM 40 MG/VIAL (PROTONIX) IVP SCH ×2 (08:35→21:46)
[2018-05-10] MEDS: POTASSIUM CHLORIDE 20 MEQ TAB.PRT.SR PO SCH ×2 (08:35→21:47)
[2018-05-10] MEDS: LUBIPROSTONE 24 MCG CAPSULE PO SCH ×2 (08:35→21:47)
[2018-05-10 12:20] VITALS: BP_SYST 114
[2018-05-10] MEDS ORDERED: metroNIDAZOLE 500 MG TABLET PO ONE (14:30)
[2018-05-10 16:20] VITALS: BP_SYST 104
[2018-05-10] MEDS: SOD FERRIC GLUC COMPLEX/SUC 125 MG in NS 100 ML IV SCH (18:20)
[2018-05-10] MEDS: DOXYCYCLINE HYCLATE 100 MG CAPSULE PO SCH (21:47)
[2018-05-10] MEDS: metroNIDAZOLE 500 MG TABLET PO SCH (21:47)
[2018-05-11] VITALS: BP_SYST 102
[2018-05-11] MEDS: MORPHINE 2 MG/ML INJ. SYRINGE IVP PRN ×2 (01:12→05:17)
[2018-05-11] MEDS: metroNIDAZOLE 500 MG TABLET PO SCH ×2 (05:17→14:59)
[2018-05-11 08:05] VITALS: BP_SYST 87
[2018-05-11] MEDS: POTASSIUM CHLORIDE 20 MEQ TAB.PRT.SR PO SCH (08:51)
[2018-05-11] MEDS: DOXYCYCLINE HYCLATE 100 MG CAPSULE PO SCH (08:51)
[2018-05-11] MEDS: LUBIPROSTONE 24 MCG CAPSULE PO SCH (08:51)
[2018-05-11] MEDS: PANTOPRAZOLE SODIUM 40 MG/VIAL (PROTONIX) IVP SCH (08:51)
[2018-05-11 10:19] LABS: CALCIUM 8.1 mg/dL (8.4-11.0); CREATININE 0.6 mg/dL (0.55-1.30); POTASSIUM 4.5 mmol/L (3.5-5.1)
[2018-05-11 10:22] LABS: BASOPHILS % (AUTO) 0.7 % (0.0-2.0); EOSINOPHILS # (AUTO) 0.1 K/uL (0.0-0.4); EOSINOPHILS % (AUTO) 2.8 % (0.0-4.0); HEMATOCRIT 26.8 % (36-48); HEMOGLOBIN 8.5 g/dL (12.0-16.0); LYMPHOCYTES # (AUTO) 1.9 K/uL (1.0-5.5); LYMPHOCYTES % (AUTO) 36.3 % (20.5-51.5); MEAN CORPUSCULAR HEMOGLOBIN 22 pg (27-31); MEAN CORPUSCULAR HGB CONC 32 % (32-36); MEAN CORPUSCULAR VOLUME 70 fL (79.0-98.0); MONOCYTES # (AUTO) 0.4 K/uL (0.0-1.0); MONOCYTES % (AUTO) 6.8 % (1.7-9.3); NEUTROPHILS # (AUTO) 2.9 K/uL (1.8-7.7); NEUTROPHILS % (AUTO) 53.4 % (40.0-70.0); PLATELET COUNT (AUTO) 264 K/uL (130-430); RED BLOOD CELL COUNT(AUTO) 3.83 MIL/uL (4.2-6.2); RED CELL DISTRIBUTION WIDTH 19.8 % (9.0-15.0); WHITE BLOOD COUNT (AUTO) 5.3 K/uL (4.8-10.8)
[2018-05-11 12:00] VITALS: BP_SYST 89
[2018-05-11 16:00] VITALS: BP_SYST 110
[2018-05-11 20:00] VITALS: BP_SYST 98
[2018-05-11 20:08] VITALS: BP_SYST 98
[2018-05-11] MEDS ORDERED: MULT PO (20:23)
[2018-05-11] MEDS ORDERED: FERR-57 PO (20:24)
[2018-05-11] MEDS ORDERED: DOCU250C PO (20:25)
[2018-05-11] MEDS ORDERED: PRO40 PO (20:26)
[2018-05-11] MEDS ORDERED: MAGN400T10 PO (20:28)
[2018-05-11] MEDS ORDERED: POTA20TA83 PO (20:28)
== END 2018-05-11 21:37 | disposition home or self-care (01) | DRG 389 ==
LOC: SED 04:00 → SMU 07:13
PROVIDERS: ADMIT Internal Medicine; ATTEND Internal Medicine
DX: K56.41 Fecal impaction (principal); Q43.8 Other specified congenital malformations of intestine; N20.0 Calculus of kidney; K64.9 Unspecified hemorrhoids; F15.10 Other stimulant abuse, uncomplicated; E87.6 Hypokalemia; D50.9 Iron deficiency anemia, unspecified; Z79.899 Other long term (current) drug therapy; Z80.41 Family history of malignant neoplasm of ovary; Z80.0 Family history of malignant neoplasm of digestive organs; Z87.11 Personal history of peptic ulcer disease
CPT/HCPCS: 36415; 74250-TC; 76830-TC; 76856-TC; 76857; 80048; 80053; 80307; 81000-TC; 83540-TC; 83550-TC; 83605; 83690-TC; 84443-TC; 84703; 85007; 85025; 85027; 85044-TC; 87040-TC; 96361; 96374; 96375; 99285; C9113; J1170; J1885; J2270; J2916; Q9963

== ENCOUNTER 2018-05-16 11:54 | Emergency (ER) | payer SELFPAY ==
[~2018-05-16] VITALS: Ht 160 cm; Wt 68.0 kg
[~2018-05-16 11:54] MED LIST changes: +DOCU250C PO; +FERR-57 PO; +MAGN400T10 PO; +MULT PO; -ONDA4TAB5 PO; +POTA20TA83 PO
[2018-05-16 12:02] VITALS: BP_SYST 139
[2018-05-16] MEDS ORDERED: MORPHINE 2 MG/ML INJ. SYRINGE IVP ONE (12:15)
[2018-05-16 12:37] LABS: BILIRUBIN,URINE NEGATIVE (NEGATIVE); BLOOD, URINE 3+ (NEGATIVE); CLARITY/URINE SL HAZY (CLEAR); COLOR,URINE YELLOW (YELLOW); GLUCOSE,URINE NEGATIVE (NEGATIVE); KETONES,URINE 1+ (NEGATIVE); LEUKOCYTE ESTERASE ,URINE NEGATIVE (NEGATIVE); NITRITE, URINE NEGATIVE (NEGATIVE); PROTEIN URINE 1+ (NEGATIVE); UROBILINOGEN,URINE 0.2 (0.2-1.0)
[2018-05-16 13:00] LABS: BARBITURATE, URINE NEGATIVE (NEG <=200)
[2018-05-16] MEDS ORDERED: ONDANSETRON HCL 4 MG/2 ML VIAL IVP ONE (13:00)
[2018-05-16 13:03] LABS: BENZODIAZEPINE, URINE NEGATIVE (NEG <=150); CANNABINOID, URINE NEGATIVE (NEG <=50); COCAINE, URINE NEGATIVE (NEG <=150); METHAMPHETAMINES SCREEN,URINE NEGATIVE (NEG <=500); OPIATE, URINE NEGATIVE (NEG <=100); PHENCYCLIDINE SCREEN,URINE NEGATIVE (NEG <=25); URINE AMPHETAMINE POSITIVE (NEG <=500); URINE METHADONE NEGATIVE (NEG <=200); URINE OXYCODONE SCREEN NEGATIVE (NEG <=100); URINE PROPOXYPHENE SCREEN NEGATIVE (NEG <=300)
[2018-05-16 13:05] LABS: CALCIUM 8.5 mg/dL (8.4-11.0); CREATININE 0.74 mg/dL (0.55-1.30); POTASSIUM 3.5 mmol/L (3.5-5.1)
[2018-05-16 13:07] LABS: BASOPHILS # (AUTO) 0.1 K/uL (0.0-0.2); EOSINOPHILS # (AUTO) 0.1 K/uL (0.0-0.4); HEMATOCRIT 34.5 % (36-48); LYMPHOCYTES # (AUTO) 1.2 K/uL (1.0-5.5); LYMPHOCYTES % (AUTO) 16.1 % (20.5-51.5); MEAN CORPUSCULAR HEMOGLOBIN 23 pg (27-31); MEAN CORPUSCULAR HGB CONC 32 % (32-36); MEAN CORPUSCULAR VOLUME 71 fL (79.0-98.0); MONOCYTES # (AUTO) 0.5 K/uL (0.0-1.0); MONOCYTES % (AUTO) 6.1 % (1.7-9.3); NEUTROPHILS # (AUTO) 5.6 K/uL (1.8-7.7); NEUTROPHILS % (AUTO) 75.8 % (40.0-70.0); PLATELET COUNT (AUTO) 381 K/uL (130-430); RED BLOOD CELL COUNT(AUTO) 4.83 MIL/uL (4.2-6.2); WHITE BLOOD COUNT (AUTO) 7.5 K/uL (4.8-10.8)
[2018-05-16 13:10] LABS: ALBUMIN 3.6 g/dL (3.4-4.8); TOTAL BILIRUBIN 1.4 mg/dL (0.0-1.0)
[2018-05-16 13:13] LABS: RBC,URINE 20-50 /HPF (0-3)
[2018-05-16 13:14] LABS: BACTERIA,URINE FEW /HPF (None Seen); MUCUS,URINE None Seen /LPF (None Seen)
[2018-05-16 16:38] VITALS: BP_SYST 140
== END 2018-05-16 15:11 | disposition home or self-care (01) ==
LOC: SED 11:54
DX: G89.29 Other chronic pain (principal); R10.84 Generalized abdominal pain; F15.10 Other stimulant abuse, uncomplicated; Z86.2 Personal history of diseases of the blood and blood-forming organs and certain disorders involving the immune mechanism; Z87.442 Personal history of urinary calculi; Z79.899 Other long term (current) drug therapy
CPT/HCPCS: 36415; 74176; 80053; 80307; 81000; 81025; 83690; 85025; 87086; 96374; 96375; 99285; J2270; J2405

== ENCOUNTER 2018-05-16 21:21 | Emergency (ER) | payer SELFPAY ==
[~2018-05-16] VITALS: Ht 160 cm; Wt 68.0 kg
[2018-05-16 21:34] VITALS: BP_SYST 143
[2018-05-16] MEDS ORDERED: NACL 0.9% 1,000 ML IV ONE (22:29)
[2018-05-16] MEDS ORDERED: MORPHINE 2 MG/ML INJ. SYRINGE IVP ONE ×2 (22:30→23:30)
[2018-05-16] MEDS ORDERED: PANTOPRAZOLE SODIUM 40 MG/VIAL (PROTONIX) IVP ONE (22:30)
[2018-05-16] MEDS ORDERED: ONDANSETRON HCL 4 MG/2 ML VIAL IVP ONE (22:30)
[2018-05-16] MEDS ORDERED: PANTOPRAZOLE SODIUM 40 MG/VIAL (PROTONIX) ONE (22:42)
[2018-05-16 23:02] LABS: BASOPHILS % (AUTO) 0.3 % (0.0-2.0); EOSINOPHILS % (AUTO) 0.4 % (0.0-4.0); HEMATOCRIT 33.3 % (36-48); HEMOGLOBIN 10.8 g/dL (12.0-16.0); LYMPHOCYTES % (AUTO) 15.4 % (20.5-51.5); MEAN CORPUSCULAR HEMOGLOBIN 23 pg (27-31); MEAN CORPUSCULAR HGB CONC 33 % (32-36); MEAN CORPUSCULAR VOLUME 71 fL (79.0-98.0); MONOCYTES # (AUTO) 0.3 K/uL (0.0-1.0); MONOCYTES % (AUTO) 4.2 % (1.7-9.3); NEUTROPHILS # (AUTO) 5.4 K/uL (1.8-7.7); NEUTROPHILS % (AUTO) 79.7 % (40.0-70.0); PLATELET COUNT (AUTO) 387 K/uL (130-430); RED BLOOD CELL COUNT(AUTO) 4.71 MIL/uL (4.2-6.2); RED CELL DISTRIBUTION WIDTH 20.9 % (9.0-15.0); WHITE BLOOD COUNT (AUTO) 6.7 K/uL (4.8-10.8)
[2018-05-16 23:12] LABS: CALCIUM 8.7 mg/dL (8.4-11.0); CREATININE 0.74 mg/dL (0.55-1.30); POTASSIUM 3.3 mmol/L (3.5-5.1)
[2018-05-16 23:17] LABS: ALBUMIN 3.6 g/dL (3.4-4.8); TOTAL BILIRUBIN 1.6 mg/dL (0.0-1.0)
[2018-05-16] MEDS ORDERED: DIPHENHYDRAMINE INJ 50 MG/ML VIAL IVP ONE (23:30)
[2018-05-17 02:02] LABS: BILIRUBIN,URINE NEGATIVE (NEGATIVE); BLOOD, URINE 3+ (NEGATIVE); CLARITY/URINE CLEAR (CLEAR); COLOR,URINE YELLOW (YELLOW); GLUCOSE,URINE NEGATIVE (NEGATIVE); KETONES,URINE 3+ (NEGATIVE); LEUKOCYTE ESTERASE ,URINE NEGATIVE (NEGATIVE); NITRITE, URINE NEGATIVE (NEGATIVE); PH,URINE 6.5 (5.0-8.0); PROTEIN URINE NEGATIVE (NEGATIVE); UROBILINOGEN,URINE 0.2 (0.2-1.0)
[2018-05-17 02:26] LABS: BACTERIA,URINE FEW /HPF (None Seen); MUCUS,URINE 1+ /LPF (None Seen); RBC,URINE 20-50 /HPF (0-3); WBC,URINE 0-3 /HPF (0-3)
[2018-05-17 04:50] VITALS: BP_SYST 143
== END 2018-05-17 04:50 | disposition home or self-care (01) ==
LOC: SED 21:21
DX: R10.9 Unspecified abdominal pain (principal); R11.2 Nausea with vomiting, unspecified; Z86.2 Personal history of diseases of the blood and blood-forming organs and certain disorders involving the immune mechanism; Z87.442 Personal history of urinary calculi; Z79.899 Other long term (current) drug therapy
CPT/HCPCS: 36415; 80053; 81000; 83690; 85025; 96361; 96374; 96375; 96376; 99284; C9113; J1200; J2270; J2405; J7030

== ENCOUNTER 2018-05-18 22:16 | Emergency (ER) | payer SELFPAY ==
[~2018-05-18] VITALS: Ht 160 cm; Wt 69.4 kg
[2018-05-18 22:22] VITALS: BP_SYST 126
[2018-05-18] MEDS ORDERED: LACTULOSE 20 GM/30 ML UDC PO ONE (23:00)
[2018-05-19] MEDS ORDERED: KETOROLAC TROMETHAMINE 30 MG VIAL IM ONE (01:30)
[2018-05-19] MEDS ORDERED: ONDANSETRON 4 MG ODT TAB PO ONE (01:30)
[2018-05-19] MEDS ORDERED: MAGNESIUM CITRATE 300 ML ORAL SOLUTION PO ONE (02:00)
[2018-05-19 04:00] VITALS: BP_SYST 130
== END 2018-05-19 04:00 | disposition home or self-care (01) ==
LOC: SED 22:16
DX: N20.0 Calculus of kidney (principal); K59.00 Constipation, unspecified; Z86.2 Personal history of diseases of the blood and blood-forming organs and certain disorders involving the immune mechanism; Z79.899 Other long term (current) drug therapy
CPT/HCPCS: 96372; 99284; J1885; Q0162

== ENCOUNTER 2018-08-19 17:38 | Emergency (ER) | payer MEDICAID ==
[~2018-08-19] VITALS: Ht 162.6 cm; Wt 69.4 kg
[~2018-08-19 17:38] MED LIST changes: -DOCU250C PO; +DOCU250C14 PO; -IBUP-1480 PO; +IBUP-1970 PO
[2018-08-19 17:53] VITALS: BP_SYST 150
[2018-08-19] MEDS ORDERED: NACL 0.9% 1,000 ML IV ONE (18:15)
[2018-08-19] MEDS ORDERED: KETOROLAC TROMETHAMINE 30 MG VIAL IVP ONE (18:15)
[2018-08-19 18:38] LABS: CALCIUM 9.2 mg/dL (8.4-11.0); CREATININE 0.73 mg/dL (0.55-1.30); POTASSIUM 3.8 mmol/L (3.5-5.1)
[2018-08-19 18:42] LABS: BASOPHILS % (AUTO) 0.7 % (0.0-2.0); EOSINOPHILS # (AUTO) 0.2 K/uL (0.0-0.4); EOSINOPHILS % (AUTO) 3.4 % (0.0-4.0); HEMATOCRIT 38.2 % (36-48); HEMOGLOBIN 12.5 g/dL (12.0-16.0); LYMPHOCYTES # (AUTO) 1.5 K/uL (1.0-5.5); LYMPHOCYTES % (AUTO) 29.5 % (20.5-51.5); MEAN CORPUSCULAR HEMOGLOBIN 25 pg (27-31); MEAN CORPUSCULAR HGB CONC 33 % (32-36); MEAN CORPUSCULAR VOLUME 76 fL (79.0-98.0); MONOCYTES # (AUTO) 0.4 K/uL (0.0-1.0); MONOCYTES % (AUTO) 7.6 % (1.7-9.3); NEUTROPHILS # (AUTO) 2.9 K/uL (1.8-7.7); NEUTROPHILS % (AUTO) 58.8 % (40.0-70.0); PLATELET COUNT (AUTO) 326 K/uL (130-430); RED BLOOD CELL COUNT(AUTO) 5.02 MIL/uL (4.2-6.2); RED CELL DISTRIBUTION WIDTH 17.8 % (9.0-15.0)
[2018-08-19 18:43] LABS: ALBUMIN 3.9 g/dL (3.4-4.8); TOTAL BILIRUBIN 0.8 mg/dL (0.0-1.0)
[2018-08-19 19:24] LABS: BILIRUBIN,URINE NEGATIVE (NEGATIVE); BLOOD, URINE NEGATIVE (NEGATIVE); CLARITY/URINE HAZY (CLEAR); COLOR,URINE YELLOW (YELLOW); GLUCOSE,URINE NEGATIVE (NEGATIVE); KETONES,URINE NEGATIVE (NEGATIVE); LEUKOCYTE ESTERASE ,URINE NEGATIVE (NEGATIVE); NITRITE, URINE NEGATIVE (NEGATIVE); PROTEIN URINE NEGATIVE (NEGATIVE); UROBILINOGEN,URINE 0.2 (0.2-1.0)
[2018-08-19 19:38] LABS: BARBITURATE, URINE NEGATIVE (NEG <=200); BENZODIAZEPINE, URINE NEGATIVE (NEG <=150); CANNABINOID, URINE NEGATIVE (NEG <=50); COCAINE, URINE NEGATIVE (NEG <=150); METHAMPHETAMINES SCREEN,URINE POSITIVE (NEG <=500); OPIATE, URINE NEGATIVE (NEG <=100); PHENCYCLIDINE SCREEN,URINE NEGATIVE (NEG <=25); UR TRICYCLIC ANTIDEPRESSANTS NEGATIVE (NEG <=300); URINE AMPHETAMINE POSITIVE (NEG <=500); URINE METHADONE NEGATIVE (NEG <=200); URINE OXYCODONE SCREEN NEGATIVE (NEG <=100); URINE PROPOXYPHENE SCREEN NEGATIVE (NEG <=300)
[2018-08-19 20:05] VITALS: BP_SYST 134
== END 2018-08-19 20:05 | disposition home or self-care (01) ==
LOC: SED 17:38
DX: R10.30 Lower abdominal pain, unspecified (principal); Z76.5 Malingerer [conscious simulation]; R03.0 Elevated blood-pressure reading, without diagnosis of hypertension; F17.200 Nicotine dependence, unspecified, uncomplicated; Z71.6 Tobacco abuse counseling; Z86.2 Personal history of diseases of the blood and blood-forming organs and certain disorders involving the immune mechanism; Z79.899 Other long term (current) drug therapy
CPT/HCPCS: 36415; 80053; 80307; 81003; 85025; 96361; 96374; 99284; J1885; J7030

== ENCOUNTER 2018-08-21 23:36 | Emergency (ER) | payer MEDICAID ==
[~2018-08-21] VITALS: Ht 165.1 cm; Wt 59.0 kg
[2018-08-22 00:09] VITALS: BP_SYST 134
[2018-08-22] MEDS ORDERED: NACL 0.9% 1,000 ML IV ONE (01:14)
[2018-08-22] MEDS ORDERED: ONDANSETRON HCL 4 MG/2 ML VIAL IVP ONE (01:15)
[2018-08-22] MEDS ORDERED: MORPHINE 2 MG/ML INJ. SYRINGE IVP ONE (01:15)
[2018-08-22] MEDS ORDERED: PANTOPRAZOLE SODIUM 40 MG/VIAL (PROTONIX) IVP ONE (01:15)
[2018-08-22 02:04] LABS: BILIRUBIN,URINE NEGATIVE (NEGATIVE); BLOOD, URINE 1+ (NEGATIVE); CLARITY/URINE CLEAR (CLEAR); COLOR,URINE YELLOW (YELLOW); GLUCOSE,URINE NEGATIVE (NEGATIVE); KETONES,URINE NEGATIVE (NEGATIVE); LEUKOCYTE ESTERASE ,URINE NEGATIVE (NEGATIVE); NITRITE, URINE NEGATIVE (NEGATIVE); PH,URINE 7.5 (5.0-8.0); PROTEIN URINE NEGATIVE (NEGATIVE)
[2018-08-22 02:06] LABS: BASOPHILS # (AUTO) 0.1 K/uL (0.0-0.2); BASOPHILS % (AUTO) 0.9 % (0.0-2.0); EOSINOPHILS # (AUTO) 0.1 K/uL (0.0-0.4); EOSINOPHILS % (AUTO) 1.3 % (0.0-4.0); HEMATOCRIT 42.9 % (36-48); HEMOGLOBIN 13.9 g/dL (12.0-16.0); LYMPHOCYTES # (AUTO) 1.4 K/uL (1.0-5.5); LYMPHOCYTES % (AUTO) 21.3 % (20.5-51.5); MEAN CORPUSCULAR HEMOGLOBIN 25 pg (27-31); MEAN CORPUSCULAR HGB CONC 32 % (32-36); MEAN CORPUSCULAR VOLUME 79 fL (79.0-98.0); MONOCYTES # (AUTO) 0.4 K/uL (0.0-1.0); MONOCYTES % (AUTO) 6.3 % (1.7-9.3); NEUTROPHILS # (AUTO) 4.5 K/uL (1.8-7.7); NEUTROPHILS % (AUTO) 70.2 % (40.0-70.0); PLATELET COUNT (AUTO) 325 K/uL (130-430); RED BLOOD CELL COUNT(AUTO) 5.46 MIL/uL (4.2-6.2); RED CELL DISTRIBUTION WIDTH 17.5 % (9.0-15.0); WHITE BLOOD COUNT (AUTO) 6.5 K/uL (4.8-10.8)
[2018-08-22 02:13] LABS: BACTERIA,URINE FEW /HPF (None Seen); WBC,URINE 0-3 /HPF (0-3)
[2018-08-22 02:21] LABS: BARBITURATE, URINE NEGATIVE (NEG <=200); BENZODIAZEPINE, URINE NEGATIVE (NEG <=150); CANNABINOID, URINE NEGATIVE (NEG <=50); COCAINE, URINE NEGATIVE (NEG <=150); METHAMPHETAMINES SCREEN,URINE NEGATIVE (NEG <=500); OPIATE, URINE NEGATIVE (NEG <=100); PHENCYCLIDINE SCREEN,URINE NEGATIVE (NEG <=25); UR TRICYCLIC ANTIDEPRESSANTS NEGATIVE (NEG <=300); URINE AMPHETAMINE POSITIVE (NEG <=500); URINE METHADONE NEGATIVE (NEG <=200); URINE OXYCODONE SCREEN NEGATIVE (NEG <=100); URINE PROPOXYPHENE SCREEN NEGATIVE (NEG <=300)
[2018-08-22 02:24] LABS: PROTHROMBIN TIME 10.1 SECS (9.5-12.5)
[2018-08-22 02:25] LABS: CALCIUM 9.5 mg/dL (8.4-11.0); CREATININE 0.69 mg/dL (0.55-1.30); POTASSIUM 3.4 mmol/L (3.5-5.1)
[2018-08-22 02:31] LABS: ALBUMIN 4.1 g/dL (3.4-4.8); TOTAL BILIRUBIN 1.5 mg/dL (0.0-1.0)
[2018-08-22 04:03] VITALS: BP_SYST 139
== END 2018-08-22 04:03 | disposition home or self-care (01) ==
LOC: SED 23:36
DX: R10.10 Upper abdominal pain, unspecified (principal); F15.10 Other stimulant abuse, uncomplicated; D64.9 Anemia, unspecified; Z79.899 Other long term (current) drug therapy; Z87.442 Personal history of urinary calculi
CPT/HCPCS: 36415; 80053; 80307; 81000; 83690; 85025; 85610; 85730; 96361; 96374; 96375; 99284; C9113; J2405; J7030; J2270

== ENCOUNTER 2019-02-06 15:13 | Emergency (ER) | payer MEDICAID ==
[~2019-02-06] VITALS: Ht 162.6 cm; Wt 73.9 kg
--- NOTE | 2019-02-06 15:13 | NUR ---
BROUGHT BACK TO BED #6 AND TRIAGED, REPORT GIVEN TO CHRIS
[2019-02-06 15:15] VITALS: BP_SYST 160
--- NOTE | 2019-02-06 16:00 | NUR ---
patient AOX4 from home with c/o abd pain since am. patient has chronic abd pain. patient denies v/d at this time. patient has not thrown up since arrival. normal active bowel sounds. abd is nontender upon palpation. patient able to pass gas. no other complaint or injury at this time.
--- NOTE | 2019-02-06 16:30 | NUR ---
patient admits to meth use this morning. patient stated she did eat a small breakfast but has not had anything else to eat. md notified.
--- NOTE | 2019-02-06 16:30 | NUR ---
ER at bedside examining patient.
--- NOTE | 2019-02-06 17:00 | NUR ---
patient given medication for abd pain. will continue to monitor
[2019-02-06] MEDS ORDERED: FAMOTIDINE PF 20 MG/2 ML VIAL IVP ONE (17:30)
[2019-02-06] MEDS ORDERED: LIDOCAINE VISCOUS 2%, 15 ML UDC MM ONE (17:30)
[2019-02-06] MEDS ORDERED: MAG-AL HYDROX/SIMETH 30 ML UDC PO ONE (17:30)
[2019-02-06] MEDS ORDERED: BELLADONNA ALKALOIDS/PHENOBARB 5 ML UDC PO ONE (17:30)
[2019-02-06 17:37] LABS: HEMATOCRIT 37.6 % (36-48); HEMOGLOBIN 12.3 g/dL (12.0-16.0); MEAN CORPUSCULAR HEMOGLOBIN 25 pg (27-31); MEAN CORPUSCULAR HGB CONC 33 % (32-36); MEAN CORPUSCULAR VOLUME 76 fL (79.0-98.0); RED BLOOD CELL COUNT(AUTO) 4.94 MIL/uL (4.2-6.2); RED CELL DISTRIBUTION WIDTH 16.5 % (9.0-15.0); WHITE BLOOD COUNT (AUTO) 5.2 K/uL (4.8-10.8)
[2019-02-06 17:38] LABS: BASOPHILS % (AUTO) 0.6 % (0.0-2.0); EOSINOPHILS # (AUTO) 0.1 K/uL (0.0-0.4); EOSINOPHILS % (AUTO) 2.7 % (0.0-4.0); LYMPHOCYTES # (AUTO) 1.7 K/uL (1.0-5.5); LYMPHOCYTES % (AUTO) 33.1 % (20.5-51.5); MONOCYTES # (AUTO) 0.3 K/uL (0.0-1.0); MONOCYTES % (AUTO) 5.2 % (1.7-9.3); NEUTROPHILS % (AUTO) 58.4 % (40.0-70.0); PLATELET COUNT (AUTO) 361 K/uL (130-430)
[2019-02-06 17:53] LABS: CALCIUM 8.5 mg/dL (8.4-11.0); CREATININE 0.66 mg/dL (0.55-1.30); POTASSIUM 3.2 mmol/L (3.5-5.1)
[2019-02-06 17:58] LABS: ALBUMIN 3.9 g/dL (3.4-4.8)
[2019-02-06 18:05] LABS: BILIRUBIN,URINE NEGATIVE (NEGATIVE); BLOOD, URINE 3+ (NEGATIVE); CLARITY/URINE SL HAZY (CLEAR); COLOR,URINE YELLOW (YELLOW); GLUCOSE,URINE NEGATIVE (NEGATIVE); KETONES,URINE NEGATIVE (NEGATIVE); LEUKOCYTE ESTERASE ,URINE NEGATIVE (NEGATIVE); NITRITE, URINE NEGATIVE (NEGATIVE); PROTEIN URINE NEGATIVE (NEGATIVE); UROBILINOGEN,URINE 0.2 (0.2-1.0)
[2019-02-06 18:37] VITALS: BP_SYST 144
--- NOTE | 2019-02-06 18:37 | NUR ---
Patient given written and verbal discharge instructions and verbalizes understanding. ER MD discussed with patient the results and treatment provided. Patient in stable condition. ID arm band removed. IV catheter removed intact and dressing applied, no active bleeding. Rx of Pepcid, Mylanta given. Patient educated on pain management and to follow up with PMD. Pain Scale 0/10. Opportunity for questions provided and answered. Medication side effect fact sheet provided.
[2019-02-06 18:42] LABS: BACTERIA,URINE FEW /HPF (None Seen); MUCUS,URINE None Seen /LPF (None Seen); RBC,URINE >100 /HPF (0-3); WBC,URINE 0-3 /HPF (0-3)
== END 2019-02-06 18:37 | disposition home or self-care (01) ==
LOC: SED 15:13
DX: R10.13 Epigastric pain (principal); F15.90 Other stimulant use, unspecified, uncomplicated; K21.9 Gastro-esophageal reflux disease without esophagitis; R03.0 Elevated blood-pressure reading, without diagnosis of hypertension; Z87.442 Personal history of urinary calculi; Z86.2 Personal history of diseases of the blood and blood-forming organs and certain disorders involving the immune mechanism; Z79.899 Other long term (current) drug therapy
CPT/HCPCS: 36415; 80053; 81000; 81025; 83690; 85025; 96374; 99283; J2001; J3490

== ENCOUNTER 2019-02-08 03:29 | Emergency (ER) | payer MEDICAID ==
[~2019-02-08] VITALS: Ht 162.6 cm; Wt 73.9 kg
--- NOTE | 2019-02-08 03:29 | NUR ---
Patient to ER chair 1 for evaluation. Side rails up.
[2019-02-08 03:43] VITALS: BP_SYST 119
--- NOTE | 2019-02-08 03:45 | NUR ---
Note undone in EDM - 02/08/19 at 0706 by [email or web address] Patient given written and verbal discharge instructions and verbalizes understanding. ER MD Dr. Win discussed with patient the results and treatment provided. Patient in stable condition. ID arm band removed. Patient educated on pain management and to follow up with PMD. Pain Scale 0/10. Opportunity for questions provided and answered. Medication side effect fact sheet provided.
--- NOTE | 2019-02-08 03:50 | NUR ---
Note undone in EDM - 02/08/19 at 0716 by [email or web address] Pt came to [facility] ED for medical clearance. Reports she was recently diagnosed with kidney stones and she does not have her pain medication. Reports some discomfort and is requesting an analgesic. Denies burning or urgency while urination. Denies n/v/d or fever. No other complaints/injuries noted. Will cont. to monitor.
--- NOTE | 2019-02-08 03:50 | NUR ---
Pt came to the ED for medical clearance. Reports she was recently diagnosed with kidney stones and she does not have her pain medication. Reports some discomfort and is requesting an analgesic. Denies burning or urgency while urination. Denies n/v/d or fever. No other complaints/injuries noted. Will cont. to monitor.
--- NOTE | 2019-02-08 04:00 | NUR ---
ER at bedside examining patient.
[2019-02-08] MEDS ORDERED: KETOROLAC TROMETHAMINE 30 MG VIAL IM ONE (04:30)
[2019-02-08 05:30] VITALS: BP_SYST 119
--- NOTE | 2019-02-08 05:30 | NUR ---
Patient given written and verbal discharge instructions and verbalizes understanding. ER MD Dr. Win discussed with patient the results and treatment provided. Patient in stable condition. ID arm band removed. Patient educated on pain management and to follow up with PMD. Pain Scale 0/10. Opportunity for questions provided and answered. Medication side effect fact sheet provided.
== END 2019-02-08 05:30 ==
LOC: SED 03:29
DX: M54.9 Dorsalgia, unspecified (principal); N20.0 Calculus of kidney; K21.9 Gastro-esophageal reflux disease without esophagitis; Z86.2 Personal history of diseases of the blood and blood-forming organs and certain disorders involving the immune mechanism; Z79.899 Other long term (current) drug therapy
CPT/HCPCS: 96372; 99283; J1885

== ENCOUNTER 2019-05-15 01:26 | Emergency (ER) | payer MEDICAID ==
[~2019-05-15] VITALS: Ht 162.6 cm; Wt 74.4 kg
[2019-05-15 01:40] VITALS: BP_SYST 114
[2019-05-15] MEDS ORDERED: NACL 0.9% 1,000 ML IV ONE (01:48)
[2019-05-15] MEDS ORDERED: ONDANSETRON HCL 4 MG/2 ML VIAL IVP ONE (02:00)
[2019-05-15] MEDS ORDERED: ACETAMINOPHEN 325 MG TABLET PO ONE (02:00)
[2019-05-15 02:25] LABS: BASOPHILS % (AUTO) 0.3 % (0.0-2.0); EOSINOPHILS % (AUTO) 0.3 % (0.0-4.0); HEMATOCRIT 34.5 % (36-48); HEMOGLOBIN 11.3 g/dL (12.0-16.0); LYMPHOCYTES # (AUTO) 1.3 K/uL (1.0-5.5); LYMPHOCYTES % (AUTO) 14.1 % (20.5-51.5); MEAN CORPUSCULAR HEMOGLOBIN 26 pg (27-31); MEAN CORPUSCULAR HGB CONC 33 % (32-36); MEAN CORPUSCULAR VOLUME 79 fL (79.0-98.0); MONOCYTES # (AUTO) 1.2 K/uL (0.0-1.0); MONOCYTES % (AUTO) 12.5 % (1.7-9.3); NEUTROPHILS # (AUTO) 6.8 K/uL (1.8-7.7); NEUTROPHILS % (AUTO) 72.8 % (40.0-70.0); PLATELET COUNT (AUTO) 279 K/uL (130-430); RED BLOOD CELL COUNT(AUTO) 4.38 MIL/uL (4.2-6.2); RED CELL DISTRIBUTION WIDTH 17.9 % (9.0-15.0); WHITE BLOOD COUNT (AUTO) 9.4 K/uL (4.8-10.8)
[2019-05-15 02:40] LABS: CALCIUM 8.6 mg/dL (8.4-11.0); CREATININE 0.9 mg/dL (0.55-1.30); POTASSIUM 3.7 mmol/L (3.5-5.1)
[2019-05-15 02:45] LABS: ALBUMIN 2.9 g/dL (3.4-4.8); TOTAL BILIRUBIN 1.1 mg/dL (0.0-1.0)
[2019-05-15] MEDS ORDERED: AMOXICILLIN 500 MG CAPSULE PO ONE (03:15)
[2019-05-15 03:37] VITALS: BP_SYST 114
== END 2019-05-15 03:37 ==
LOC: SED 01:26
DX: R50.9 Fever, unspecified (principal); R05 Cough; K21.9 Gastro-esophageal reflux disease without esophagitis; Z86.2 Personal history of diseases of the blood and blood-forming organs and certain disorders involving the immune mechanism; Z87.442 Personal history of urinary calculi; Z79.899 Other long term (current) drug therapy
CPT/HCPCS: 36415; 80053; 83605; 85025; 87040; 96374; 99283; J2405; J7030

== ENCOUNTER 2021-07-24 12:28 | Inpatient (IN) | payer MEDICAID, SELFPAY ==
[~2021-07-24] VITALS: Ht 162.6 cm; Wt 72.6 kg
[2021-07-24 13:10] VITALS: BP_SYST 132
--- NOTE | 2021-07-24 14:34 | NUR ---
Patient to ER bed 3 to gown for evaluation. Side rails up. Report given to Fito DE LA ROSA.
--- NOTE | 2021-07-24 14:40 | NUR ---
Pt came into Er with complaint of mid abdominal cramping X2days 8/10 pain. Pt is AAOX4 speaking full sentences. Pt states she was admitted to [facility] last month for a gastric ulcer. Pt denies vomitting. Reports mild nausea. Last BM was yesterday denies any blood in stool. Pt resting in gurney attached to monitor VSS no distress noted at this time.
[2021-07-24] MEDS ORDERED: NACL 0.9% 1,000 ML IV ONE (14:45)
[2021-07-24] MEDS ORDERED: PANTOPRAZOLE SODIUM 40 MG/VIAL (PROTONIX) IVP ONE (14:45)
--- NOTE | 2021-07-24 14:48 | NUR ---
Pt ambulated to restroom for urine specimen.
--- NOTE | 2021-07-24 14:50 | NUR ---
Urine collected and sent to lab.
--- NOTE | 2021-07-24 14:51 | NUR ---
ER at bedside examining patient.
--- NOTE | 2021-07-24 14:54 | NUR ---
Patient transported to radiology via wheelchair, accompanied by tech.
[2021-07-24 15:00] LABS: BILIRUBIN,URINE NEGATIVE (NEGATIVE); BLOOD, URINE 1+ (NEGATIVE); CLARITY/URINE CLEAR (CLEAR); COLOR,URINE YELLOW (YELLOW); GLUCOSE,URINE NEGATIVE (NEGATIVE); KETONES,URINE NEGATIVE (NEGATIVE); LEUKOCYTE ESTERASE ,URINE TRACE (NEGATIVE); NITRITE, URINE NEGATIVE (NEGATIVE); PROTEIN URINE NEGATIVE (NEGATIVE); UROBILINOGEN,URINE 0.2 (0.2-1.0)
--- NOTE | 2021-07-24 15:04 | NUR ---
Pt back from CT.
[2021-07-24 15:11] LABS: BACTERIA,URINE FEW /HPF (None Seen); MUCUS,URINE 1+ /LPF (None Seen); RBC,URINE 0-3 /HPF (0-3)
--- NOTE | 2021-07-24 15:12 | NUR ---
# 20 gauge angiocath placed to RAC. Use of asceptic technique. Opsite placed over site. Blood return noted. Blood for lab drawn from site. Flushed with 10 cc of normal saline. No evidence of infiltration noted. Patient tolerated well.
--- NOTE | 2021-07-24 15:13 | NUR ---
Blood collected and sent to lab.
[2021-07-24 15:41] LABS: BASOPHILS % (AUTO) 0.5 % (0.0-2.0); EOSINOPHILS # (AUTO) 0.2 K/uL (0.0-0.4); HEMATOCRIT 32.5 % (36-48); HEMOGLOBIN 10.5 g/dL (12.0-16.0); LYMPHOCYTES # (AUTO) 1.4 K/uL (1.0-5.5); LYMPHOCYTES % (AUTO) 27.1 % (20.5-51.5); MEAN CORPUSCULAR HEMOGLOBIN 24 pg (27-31); MEAN CORPUSCULAR HGB CONC 32 % (32-36); MEAN CORPUSCULAR VOLUME 76 fL (79.0-98.0); MONOCYTES # (AUTO) 0.3 K/uL (0.0-1.0); MONOCYTES % (AUTO) 6.7 % (1.7-9.3); NEUTROPHILS # (AUTO) 3.2 K/uL (1.8-7.7); NEUTROPHILS % (AUTO) 61.7 % (40.0-70.0); PLATELET COUNT (AUTO) 313 K/uL (130-430); RED CELL DISTRIBUTION WIDTH 19.1 % (9.0-15.0); WHITE BLOOD COUNT (AUTO) 5.2 K/uL (4.8-10.8)
[2021-07-24 15:51] LABS: CREATININE 0.83 mg/dL (0.55-1.30); POTASSIUM 3.8 mmol/L (3.5-5.1)
[2021-07-24 15:56] LABS: ALBUMIN 3.8 g/dL (3.4-4.8); TOTAL BILIRUBIN 1.2 mg/dL (0.0-1.0)
[2021-07-24] MEDS ORDERED: MAG-AL HYDROX/SIMETH 30 ML UDC PO ONE ×2 (16:00→22:00)
[2021-07-24] MEDS ORDERED: MORPHINE 4 MG INJ. 4 MG/ML VIAL IVP ONE (16:00)
--- NOTE | 2021-07-24 16:49 | NUR ---
admit orders received from Dr. Golden
[2021-07-24] MEDS ORDERED: FAMO20TA8 PO (17:13)
--- NOTE | 2021-07-24 17:13 | NUR ---
Medication reconciliation completed with information provided by Edwardo DE LA ROSA. Any prior medication reconciliation on file was reviewed and corrected.
[2021-07-24] MEDS: NACL 0.9% 1,000 ML IV SCH (17:19)
--- NOTE | 2021-07-24 17:31 | NUR ---
Transferred pt to [facility] ETA now.
--- NOTE | 2021-07-24 17:31 | NUR ---
Patient will be admitted to care of Dr. Golden. Admitted to medsurg unit. Will go to room 117A. Belongings list completed. Complete and up to date summary report printed. SBAR report to be given at bedside with opportunity for questions.
--- NOTE | 2021-07-24 17:46 | NUR ---
CONSULTATION PAGED REASON FOR CONSULTATION:ABDOMINAL PAIN WAS CONSULT CALLED?Y PERSON WHO WAS NOTIFIED:LEONILA CONSULTING PHYSICIAN:MUKESH GARCIA (CORRIE ULLOA STONE PAVER) PAPER CONE DRYING MACHINE OPERATOR SPECIALTY:GI PAPER CONE DRYING MACHINE OPERATOR PHONE NUMBER:[phone] REQUESTING PHYSICIAN:
--- NOTE | 2021-07-24 17:50 | NUR ---
ADMISSION NOTE Received patient from ER via baldemar, received report from Fito DE LA ROSA. Patient admitted with diagnosis of Intractable Abdominal pain. Patient oriented to hospital routine, call light, toileting and safety-patient verbalized understanding.
[2021-07-24 18:08] VITALS: BP_SYST 133
[2021-07-24 20:00] VITALS: BP_SYST 108; BP_SYST 122
[2021-07-24] MEDS ORDERED: MAG-AL HYDROX/SIMETH 30 ML UDC PO PRN (22:00)
[2021-07-24] MEDS: ONDANSETRON HCL 4 MG/2 ML VIAL IVP PRN (22:29)
[2021-07-24] MEDS: MORPHINE 4 MG INJ. 4 MG/ML VIAL IVP PRN (22:29)
--- NOTE | 2021-07-24 22:33 | NUR ---
Zofran, Morphine Patient reporting nausea and severe abdominal pain (06/29). Administered Zofran and Morphine as ordered, reviewed side effects and she verbalized understanding.
[2021-07-24] MEDS: DOCUSATE SODIUM 250 MG CAPSULE PO SCH (22:47)
[2021-07-24 23:24] LABS: BARBITURATE, URINE NEGATIVE (NEG <=200); BENZODIAZEPINE, URINE NEGATIVE (NEG <=150); CANNABINOID, URINE NEGATIVE (NEG <=50); COCAINE, URINE NEGATIVE (NEG <=150); METHAMPHETAMINES SCREEN,URINE POSITIVE (NEG <=500); OPIATE, URINE NEGATIVE (NEG <=100); PHENCYCLIDINE SCREEN,URINE NEGATIVE (NEG <=25); UR TRICYCLIC ANTIDEPRESSANTS NEGATIVE (NEG <=300); URINE AMPHETAMINE POSITIVE (NEG <=500); URINE METHADONE NEGATIVE (NEG <=200); URINE OXYCODONE SCREEN NEGATIVE (NEG <=100); URINE PROPOXYPHENE SCREEN NEGATIVE (NEG <=300)
[2021-07-24] MEDS ORDERED: TEMAZEPAM 15 MG CAPSULE PO PRN (23:45)
[2021-07-25 00:50] VITALS: BP_SYST 125
[2021-07-25] MEDS: NACL 0.9% 1,000 ML IV SCH ×3 (06:07→20:24)
--- NOTE | 2021-07-25 06:10 | NUR ---
IVF hung new bag of NS and infusing well, no infiltration noted. Presently denies pain.
--- NOTE | 2021-07-25 07:35 | NUR ---
OPENING NOTES: RECEIVED REPORT FROM PROGRAMMABLE LOGIC CONTROLLER ASSEMBLER NURSE. PATIENT IS AWAKE LAYING DOWN IN BED. TOLERATED OXYGEN ON ROOM AIR WITH NO DISTRESS NOTED. IV LINE PATENT AND INTACT WITH NO INFILTRATION NOTED. PATIENT STABLE AT THIS TIME. SAFETY,FALL, AND ASPIRATION PRECAUTIONS ARE IN PLACE. BED LOCKED IN LOWEST POSITION AND CALL LIGHT IN REACH. WILL CONTINUE TO MONITOR FOR ANY CHANGES.
[2021-07-25 07:53] LABS: BASOPHILS % (AUTO) 0.6 % (0.0-2.0); EOSINOPHILS # (AUTO) 0.2 K/uL (0.0-0.4); EOSINOPHILS % (AUTO) 5.8 % (0.0-4.0); HEMATOCRIT 27.6 % (36-48); LYMPHOCYTES # (AUTO) 1.8 K/uL (1.0-5.5); LYMPHOCYTES % (AUTO) 45.6 % (20.5-51.5); MEAN CORPUSCULAR HEMOGLOBIN 25 pg (27-31); MEAN CORPUSCULAR HGB CONC 33 % (32-36); MEAN CORPUSCULAR VOLUME 76 fL (79.0-98.0); MONOCYTES # (AUTO) 0.3 K/uL (0.0-1.0); MONOCYTES % (AUTO) 6.9 % (1.7-9.3); NEUTROPHILS # (AUTO) 1.6 K/uL (1.8-7.7); NEUTROPHILS % (AUTO) 41.1 % (40.0-70.0); PLATELET COUNT (AUTO) 276 K/uL (130-430); RED BLOOD CELL COUNT(AUTO) 3.65 MIL/uL (4.2-6.2); RED CELL DISTRIBUTION WIDTH 19.3 % (9.0-15.0); WHITE BLOOD COUNT (AUTO) 3.9 K/uL (4.8-10.8)
[2021-07-25 08:00] VITALS: BP_SYST 113
[2021-07-25 08:25] LABS: TOTAL IRON BIND. CAPACITY 354 ug/dL (250-450)
[2021-07-25 08:53] LABS: CALCIUM 7.9 mg/dL (8.4-11.0); CREATININE 0.74 mg/dL (0.55-1.30); POTASSIUM 3.4 mmol/L (3.5-5.1); TOTAL BILIRUBIN 1.3 mg/dL (0.0-1.0)
[2021-07-25] MEDS: MULTIVITAMINS TAB 1 TABLET PO SCH (09:00)
[2021-07-25] MEDS: DOCUSATE SODIUM 250 MG CAPSULE PO SCH ×2 (09:00→20:23)
[2021-07-25] MEDS: FERROUS SULFATE 325 MG TABLET.DR PO SCH ×2 (09:00→20:24)
[2021-07-25] MEDS: MAGNESIUM OXIDE 400 MG TABLET PO SCH ×2 (09:00→20:24)
[2021-07-25] MEDS: PANTOPRAZOLE SODIUM 40 MG/VIAL (PROTONIX) IVP SCH ×2 (09:04→20:24)
[2021-07-25] MEDS ORDERED: POTASSIUM CHLORIDE 20 MEQ TAB.PRT.SR PO ONE (10:15)
[2021-07-25 12:00] VITALS: BP_SYST 118
[2021-07-25] MEDS: SOD FERRIC GLUC COMPLEX/SUC 125 MG in NS 100 ML IV SCH (12:19)
[2021-07-25 16:00] VITALS: BP_SYST 124
[2021-07-25] MEDS: MORPHINE 4 MG INJ. 4 MG/ML VIAL IVP PRN ×2 (17:25→22:55)
--- NOTE | 2021-07-25 18:35 | NUR ---
CLOSING NOTES: PATIENT IS AWAKE LAYING DOWN IN BED. TOLERATED OXYGEN ON ROOM AIR WITH NO DISTRESS NOTED. IV LINE PATENT AND INTACT WITH NO INFILTRATION NOTED. PATIENT STABLE AT THIS TIME. SAFETY,FALL, AND ASPIRATION PRECAUTIONS REMAINED IN PLACE. BED LOCKED IN LOWEST POSITION AND CALL LIGHT IN REACH. WILL ENDORSE PATIENT CARE TO ONCOMING MULTI NEEDLE MACHINE OPERATOR NURSE.
[2021-07-25 20:00] VITALS: BP_SYST 108
[2021-07-25] MEDS: ONDANSETRON HCL 4 MG/2 ML VIAL IVP PRN (20:25)
[2021-07-26 00:12] VITALS: BP_SYST 111
[2021-07-26] MEDS: MORPHINE 4 MG INJ. 4 MG/ML VIAL IVP PRN (03:17)
[2021-07-26] MEDS: NACL 0.9% 1,000 ML IV SCH ×2 (06:46→21:41)
[2021-07-26 07:16] LABS: BASOPHILS % (AUTO) 0.5 % (0.0-2.0); EOSINOPHILS # (AUTO) 0.2 K/uL (0.0-0.4); EOSINOPHILS % (AUTO) 4.8 % (0.0-4.0); HEMATOCRIT 27.1 % (36-48); HEMOGLOBIN 8.8 g/dL (12.0-16.0); LYMPHOCYTES # (AUTO) 1.9 K/uL (1.0-5.5); LYMPHOCYTES % (AUTO) 39.9 % (20.5-51.5); MEAN CORPUSCULAR HEMOGLOBIN 25 pg (27-31); MEAN CORPUSCULAR HGB CONC 32 % (32-36); MEAN CORPUSCULAR VOLUME 76 fL (79.0-98.0); MONOCYTES # (AUTO) 0.3 K/uL (0.0-1.0); MONOCYTES % (AUTO) 6.5 % (1.7-9.3); NEUTROPHILS # (AUTO) 2.3 K/uL (1.8-7.7); NEUTROPHILS % (AUTO) 48.3 % (40.0-70.0); PLATELET COUNT (AUTO) 271 K/uL (130-430); RED BLOOD CELL COUNT(AUTO) 3.55 MIL/uL (4.2-6.2); RED CELL DISTRIBUTION WIDTH 18.8 % (9.0-15.0); RETICULOCYTE COUNT 1.5 % (0.5-1.5); WHITE BLOOD COUNT (AUTO) 4.8 K/uL (4.8-10.8)
--- NOTE | 2021-07-26 07:40 | NUR ---
OPENING NOTES: RECEIVED REPORT FROM SUPERVISOR COREMAKER NURSE. PATIENT IS AWAKE LAYING DOWN IN BED. TOLERATED OXYGEN ON ROOM AIR WITH NO DISTRESS NOTED. IV LINE PATENT AND INTACT WITH NO INFILTRATION NOTED. PATIENT STABLE AT THIS TIME. SAFETY,FALL, AND ASPIRATION PRECAUTIONS ARE IN PLACE. BED LOCKED IN LOWEST POSITION AND CALL LIGHT IN REACH. WILL CONTINUE TO MONITOR FOR ANY CHANGES.
[2021-07-26 08:00] VITALS: BP_SYST 110
[2021-07-26] MEDS: PANTOPRAZOLE SODIUM 40 MG/VIAL (PROTONIX) IVP SCH ×2 (08:13→20:35)
[2021-07-26] MEDS: FERROUS SULFATE 325 MG TABLET.DR PO SCH ×2 (08:13→21:37)
[2021-07-26] MEDS: MAGNESIUM OXIDE 400 MG TABLET PO SCH ×2 (08:13→21:00)
[2021-07-26] MEDS: DOCUSATE SODIUM 250 MG CAPSULE PO SCH ×2 (08:13→21:36)
[2021-07-26] MEDS: MULTIVITAMINS TAB 1 TABLET PO SCH (08:13)
[2021-07-26 10:38] LABS: ALBUMIN 2.7 g/dL (3.4-4.8); CALCIUM 7.8 mg/dL (8.4-11.0); CREATININE 0.74 mg/dL (0.55-1.30); POTASSIUM 3.9 mmol/L (3.5-5.1); TOTAL BILIRUBIN 0.7 mg/dL (0.0-1.0)
--- NOTE | 2021-07-26 10:59 | NUR ---
CALLED [facility], ([facility]) TO REQUEST THE ENDOSCOPY REPORT. LEFT A VOICE MESSAGE WITH THE RELEASE OF MEDICAL INFORMATION DEPT.
[2021-07-26 11:41] VITALS: BP_SYST 114
[2021-07-26] MEDS ORDERED: cefTRIAXone 1 GM IVPB PREMIX 50 ML IV ONE (12:30)
[2021-07-26] MEDS: SOD FERRIC GLUC COMPLEX/SUC 125 MG in NS 100 ML IV SCH (12:32)
[2021-07-26] MEDS ORDERED: DOCUSATE SODIUM 250 MG CAPSULE PO SCH (13:17)
[2021-07-26 15:39] VITALS: BP_SYST 99
[2021-07-26 16:00] VITALS: BP_SYST 99
[2021-07-26] MEDS ORDERED: DOXYCYCLINE HYCLATE 100 MG CAPSULE PO SCH (18:00)
--- NOTE | 2021-07-26 18:45 | NUR ---
CLOSING NOTES: PATIENT IS AWAKE LAYING DOWN IN BED. TOLERATED OXYGEN ON ROOM AIR WITH NO DISTRESS NOTED. IV LINE PATENT AND INTACT WITH NO INFILTRATION NOTED. PATIENT STABLE AT THIS TIME. SAFETY,FALL, AND ASPIRATION PRECAUTIONS REMAINED IN PLACE. BED LOCKED IN LOWEST POSITION AND CALL LIGHT IN REACH. WILL ENDORSE PATIENT CARE TO ONCOMING LYE BATH OPERATOR NURSE.
--- NOTE | 2021-07-26 19:30 | NUR ---
Opening note Received report from day nurse. Pt resting in bed with HOB elevation, no facial grimacing or discomfort noted. Alert x4 and gave to ambulate to the bathroom. On room air, no respiratory distress, non labored breathing. IV patent and intact, no complications noted. All needs provided. Bed to lowest/locked. On fall/aspiration precaution.
[2021-07-26 20:00] VITALS: BP_SYST 114
--- NOTE | 2021-07-26 23:00 | NUR ---
note remind pt needing an UA sample and to call when needing to void. pt verbal understanding.
[2021-07-27] VITALS: BP_SYST 121
--- NOTE | 2021-07-27 03:00 | NUR ---
note pt sleeping, no distress or discomfort at this time. Call light within reach, bed to lowest and locked.
[2021-07-27] MEDS: NACL 0.9% 1,000 ML IV SCH ×2 (05:54→14:45)
--- NOTE | 2021-07-27 06:38 | NUR ---
Closing note Pt resting in bed with HOB elevation and turned to the side, no facial grimacing or discomfort noted. Alert x4, on room air, no respiratory distress, non labored breathing. IV patent and intact, IVF running and no complications noted at this time. All needs provided. Bed to lowest/locked. On fall/aspiration precaution.
[2021-07-27 07:09] LABS: BASOPHILS % (AUTO) 0.4 % (0.0-2.0); EOSINOPHILS # (AUTO) 0.3 K/uL (0.0-0.4); EOSINOPHILS % (AUTO) 4.1 % (0.0-4.0); HEMATOCRIT 27.9 % (36-48); LYMPHOCYTES # (AUTO) 1.8 K/uL (1.0-5.5); LYMPHOCYTES % (AUTO) 29.9 % (20.5-51.5); MEAN CORPUSCULAR HEMOGLOBIN 25 pg (27-31); MEAN CORPUSCULAR HGB CONC 32 % (32-36); MEAN CORPUSCULAR VOLUME 76 fL (79.0-98.0); MONOCYTES # (AUTO) 0.4 K/uL (0.0-1.0); NEUTROPHILS # (AUTO) 3.6 K/uL (1.8-7.7); NEUTROPHILS % (AUTO) 58.6 % (40.0-70.0); PLATELET COUNT (AUTO) 282 K/uL (130-430); RED BLOOD CELL COUNT(AUTO) 3.66 MIL/uL (4.2-6.2); RED CELL DISTRIBUTION WIDTH 19.1 % (9.0-15.0); WHITE BLOOD COUNT (AUTO) 6.1 K/uL (4.8-10.8)
[2021-07-27 07:34] LABS: ALBUMIN 2.7 g/dL (3.4-4.8); CALCIUM 8.1 mg/dL (8.4-11.0); CREATININE 0.81 mg/dL (0.55-1.30); TOTAL BILIRUBIN 0.5 mg/dL (0.0-1.0)
[2021-07-27 08:00] VITALS: BP_SYST 132
--- NOTE | 2021-07-27 08:00 | NUR ---
PATIENT IN BED, NO S/S OF DISTRESS, SLEEPING AT THIS TIME BUT WOKE UP TO TAKE MEDICATION, NO COMPLAINTS OF PAIN, IV INTACT AND PATENT, A/O X4, BED IN LOWEST LOCKED POSITION, CALL LIGHT WITHIN REACH, SAFETY MEASURES IN PLACE, WILL CONTINUE TO MONITOR.
[2021-07-27] MEDS: DOCUSATE SODIUM 250 MG CAPSULE PO SCH (08:52)
[2021-07-27] MEDS: PANTOPRAZOLE SODIUM 40 MG/VIAL (PROTONIX) IVP SCH (08:52)
[2021-07-27] MEDS: MULTIVITAMINS TAB 1 TABLET PO SCH (08:53)
[2021-07-27] MEDS: FERROUS SULFATE 325 MG TABLET.DR PO SCH (08:53)
[2021-07-27] MEDS: MAGNESIUM OXIDE 400 MG TABLET PO SCH (08:53)
[2021-07-27] MEDS: SOD FERRIC GLUC COMPLEX/SUC 125 MG in NS 100 ML IV SCH (11:43)
--- NOTE | 2021-07-27 12:00 | NUR ---
EDUCATED PATIENT THAT THERE WAS AN ORDER FOR URINE CULTURE, PATIENT AMBULATED TO BATHROOM AND VOIDED IN SAMPLE CUP, PROVIDED SAMPLE TO LAB.
[2021-07-27 12:40] VITALS: BP_SYST 134
[2021-07-27] MEDS ORDERED: MULT-1117 PO (14:30)
[2021-07-27] MEDS ORDERED: PRO40 PO (14:30)
[2021-07-27 16:45] VITALS: BP_SYST 130
[2021-07-27 17:00] VITALS: BP_SYST 130
--- NOTE | 2021-07-27 18:30 | NUR ---
PATIENT DISCHARGE, IV REMOVED, WRIST BAND REMOVED, DISCHARGE PACKET SIGNED AND COPY WITH PATIENT AND IN CHART, STABLE AT THIS TIME, NO PAIN REPORTED AT THIS TIME, ALL QUESTIONS ANSWERED, MEDICATIONS SENT TO PRIMARY PHARMACY REQUESTED BY PATIENT, PATIENT SHOWERED INDEPENDENTLY BEFORE BEING DISCHARGED ALL BELONGINGS WITH PATIENT, AMBULATED OUTSIDE WHERE SHE WAS PICKED UP BY FAMILY MEMBER.
[2021-07-28 08:06] LABS: FOLATE (FOLIC ACID) 6.2 ng/mL (>3.0)
== END 2021-07-27 18:30 | disposition home or self-care (01) | DRG 243 ==
LOC: SED 12:28 → SMU 16:45
PROVIDERS: ADMIT Internal Medicine; ATTEND Internal Medicine
DX: K21.9 Gastro-esophageal reflux disease without esophagitis (principal); E44.1 Mild protein-calorie malnutrition; F15.10 Other stimulant abuse, uncomplicated; D50.9 Iron deficiency anemia, unspecified; E87.6 Hypokalemia; F17.200 Nicotine dependence, unspecified, uncomplicated; R10.11 Right upper quadrant pain; Z20.822 Contact with and (suspected) exposure to COVID-19; N20.0 Calculus of kidney; N39.0 Urinary tract infection, site not specified; Z79.1 Long term (current) use of non-steroidal anti-inflammatories (NSAID); Z79.899 Other long term (current) drug therapy; Z68.27 Body mass index [BMI] 27.0-27.9, adult; Z87.11 Personal history of peptic ulcer disease
CPT/HCPCS: 36415; 76376; 76700-TC; 80053; 80307; 81000; 82607; 82728; 82746; 83540; 83550; 83690; 84703; 85025; 85044; 96361; 96374; 96375; 99285; C9113; J0696; J2270; J2405; J2916

== ENCOUNTER 2021-12-10 00:50 | Emergency (ER) | payer MEDICAID, SELFPAY ==
[~2021-12-10] VITALS: Ht 162.6 cm; Wt 73.9 kg
[~2021-12-10 00:50] MED LIST changes: -IBUP-1970 PO; +MULT-1117 PO; +POTA-197 PO; -POTA20TA83 PO
[2021-12-10 01:33] VITALS: BP_SYST 143
--- NOTE | 2021-12-10 01:35 | NUR ---
Patient triaged and placed in waiting room. VS checked and patient appears in no acute distress at this time. Accompanied by self , awaiting available bed, and MD notified of need for MSE.
--- NOTE | 2021-12-10 03:30 | NUR ---
Patient resting quietly in the waiting room. No acute distress noted. Vital signs within normal range.
--- NOTE | 2021-12-10 04:45 | NUR ---
ER in triage examining patient.
[2021-12-10] MEDS ORDERED: ONDANSETRON HCL 4 MG/2 ML VIAL IVP ONE (05:00)
[2021-12-10] MEDS ORDERED: PANTOPRAZOLE SODIUM 40 MG/VIAL (PROTONIX) IVP ONE (05:00)
[2021-12-10] MEDS ORDERED: MAG HYDROX/AL HYDROX/SIMETH 30 ML, DICYCLOMINE HCL 20 MG, LIDOCAINE VISCOUS 2% 15ML (PO... PO ONE ×3 (05:00)
[2021-12-10] MEDS ORDERED: NACL 0.9% 1,000 ML IV ONE (05:00)
--- NOTE | 2021-12-10 06:09 | NUR ---
Patient asleep at this time. Respirations even unlabored. VS within normal limits
--- NOTE | 2021-12-10 06:11 | NUR ---
Patient unable to give urine specimen at this time
[2021-12-10 06:12] LABS: BASOPHILS % (AUTO) 0.3 % (0.0-2.0); EOSINOPHILS # (AUTO) 0.2 K/uL (0.0-0.4); EOSINOPHILS % (AUTO) 3.9 % (0.0-4.0); HEMATOCRIT 41.4 % (36-48); HEMOGLOBIN 13.7 g/dL (12.0-16.0); LYMPHOCYTES # (AUTO) 1.7 K/uL (1.0-5.5); LYMPHOCYTES % (AUTO) 41.2 % (20.5-51.5); MEAN CORPUSCULAR HEMOGLOBIN 27 pg (27-31); MEAN CORPUSCULAR HGB CONC 33 % (32-36); MEAN CORPUSCULAR VOLUME 83 fL (79.0-98.0); MONOCYTES # (AUTO) 0.2 K/uL (0.0-1.0); MONOCYTES % (AUTO) 5.7 % (1.7-9.3); NEUTROPHILS % (AUTO) 48.9 % (40.0-70.0); PLATELET COUNT (AUTO) 259 K/uL (130-430); RED BLOOD CELL COUNT(AUTO) 5.01 MIL/uL (4.2-6.2); RED CELL DISTRIBUTION WIDTH 16.7 % (9.0-15.0); WHITE BLOOD COUNT (AUTO) 4.1 K/uL (4.8-10.8)
[2021-12-10] MEDS ORDERED: PRO40 PO (06:26)
[2021-12-10 06:33] LABS: ALBUMIN 3.6 g/dL (3.4-4.8); CREATININE 0.75 mg/dL (0.55-1.30); POTASSIUM 3.6 mmol/L (3.5-5.1); TOTAL BILIRUBIN 1.1 mg/dL (0.0-1.0)
[2021-12-10 06:39] VITALS: BP_SYST 125
--- NOTE | 2021-12-10 06:39 | NUR ---
Patient given written and verbal discharge instructions and verbalizes understanding. ER MD discussed with patient the results and treatment provided. Patient in stable condition. ID arm band removed. IV catheter removed intact and dressing applied, no active bleeding. Rx of Protonix sent to pharmacy of choice by ER MD. Patient educated on pain management and to follow up with PMD. Pain Scale 0/10. Opportunity for questions provided and answered.
== END 2021-12-10 06:39 | disposition home or self-care (01) ==
LOC: SED 00:50
DX: K29.00 Acute gastritis without bleeding (principal); R11.2 Nausea with vomiting, unspecified; K21.9 Gastro-esophageal reflux disease without esophagitis
CPT/HCPCS: 36415; 80053; 83690; 85025; 96361; 96374; 96375; 99284; C9113; J2001; J2405; 99283

== ENCOUNTER 2022-03-05 06:25 | Emergency (ER) | payer MEDICAID ==
[~2022-03-05] VITALS: Ht 162.6 cm; Wt 72.6 kg
[2022-03-05 06:30] VITALS: BP_SYST 153
[2022-03-05] MEDS ORDERED: HALOPERIDOL LACTATE 5 MG/ML VIAL IM ONE (06:45)
[2022-03-05 08:03] LABS: BASOPHILS # (AUTO) 0.1 K/uL (0.0-0.2); EOSINOPHILS # (AUTO) 0.2 K/uL (0.0-0.4); EOSINOPHILS % (AUTO) 3.2 % (0.0-4.0); HEMATOCRIT 43.2 % (36-48); HEMOGLOBIN 14.4 g/dL (12.0-16.0); LYMPHOCYTES # (AUTO) 1.1 K/uL (1.0-5.5); LYMPHOCYTES % (AUTO) 16.8 % (20.5-51.5); MEAN CORPUSCULAR HEMOGLOBIN 29 pg (27-31); MEAN CORPUSCULAR HGB CONC 33 % (32-36); MEAN CORPUSCULAR VOLUME 87 fL (79.0-98.0); MONOCYTES # (AUTO) 0.2 K/uL (0.0-1.0); MONOCYTES % (AUTO) 3.6 % (1.7-9.3); NEUTROPHILS % (AUTO) 75.4 % (40.0-70.0); PLATELET COUNT (AUTO) 247 K/uL (130-430); RED BLOOD CELL COUNT(AUTO) 4.96 MIL/uL (4.2-6.2); RED CELL DISTRIBUTION WIDTH 15.2 % (9.0-15.0); WHITE BLOOD COUNT (AUTO) 6.6 K/uL (4.8-10.8)
[2022-03-05 08:38] LABS: ANION GAP 8 (5-15); CALCIUM 9.3 mg/dL (8.4-11.0); CHLORIDE 102 mmol/L (98-107); CREATININE 0.75 mg/dL (0.55-1.30); GLUCOSE 103 mg/dL (70-99); POTASSIUM 3.8 mmol/L (3.5-5.1); SODIUM SERUM 136 mmol/L (136-145); UREA NITROGEN, BLOOD 15 mg/dL (8-21)
[2022-03-05 08:44] LABS: GFR AFRICAN AMERICAN 106 mL/min (>90)
[2022-03-05 08:52] LABS: ALANINE AMINOTRANSFERASE 21 U/L (12-78); ALBUMIN 3.8 g/dL (3.4-4.8); AMYLASE 70 U/L (0-100); ASPARTATE AMINOTRANSFERASE 18 U/L (10-37); LIPASE 136 U/L (73-393); TOTAL BILIRUBIN 0.9 mg/dL (0.0-1.0)
[2022-03-05 08:53] LABS: C-REACTIVE PROTEIN QUANT < 0.2 mg/dL (0-0.5)
[2022-03-05] MEDS ORDERED: METO-290 PO (09:31)
[2022-03-05] MEDS ORDERED: OMEP20CA15 PO (09:31)
[2022-03-05 12:37] VITALS: BP_SYST 145
== END 2022-03-05 12:37 | disposition home or self-care (01) ==
LOC: SED 06:25
DX: K31.84 Gastroparesis (principal); K21.9 Gastro-esophageal reflux disease without esophagitis
CPT/HCPCS: 36415; 80053; 82150; 83605; 83690; 84703; 85025; 86140; 96372; 99283; J1630